=== PATIENT | male | born 1945 | race Caucasian/White ===

== ENCOUNTER → 2020-07-05 09:22 | Outpatient (BNVA) | payer MEDICARE, SELFPAY | PROVIDERS: PCP Internal Medicine; Visit Provider Urology | DX: Z13.89 Encounter for screening for other disorder (principal) | CPT/HCPCS: 99212 ==

== ENCOUNTER → 2021-07-09 08:32 | Outpatient (BNVA) | payer MEDICARE, SELFPAY | PROVIDERS: PCP Internal Medicine; Visit Provider Urology | DX: N40.1 Benign prostatic hyperplasia with lower urinary tract symptoms (principal); R39.12 Poor urinary stream | CPT/HCPCS: Q3014 ==

== ENCOUNTER → 2021-08-23 10:02 | Outpatient (BNVA) | payer MEDICARE, SELFPAY | PROVIDERS: PCP Internal Medicine; Visit Provider Urology | DX: N40.0 Benign prostatic hyperplasia without lower urinary tract symptoms (principal) | CPT/HCPCS: Q3014 ==

== ENCOUNTER 2021-09-02 07:10 | Day surgery (SDC) | payer MEDICARE, SELFPAY ==
--- NOTE | 2021-08-30 09:36 | HO.ANESPROP2 ---
Documented by User: Lisa Garcia NP 08/30/21 09:39 HPI - Anesthesia Eval Consult details Narrative: 76yo M for Laser Ablation Prostate w/Green Light PMFSH Active Problems Active Problems: All Active Problems (Updated 07/05/20 @ 09:59 by Napoleon Dao MD) Benign prostatic hyperplasia with lower urinary tract symptoms (Acute) Past Medical History Medical History (Updated 08/30/21 @ 09:38 by Lisa Garcia NP) Benign prostatic hyperplasia with lower urinary tract symptoms Hematuria HLD (hyperlipidemia) Hypothyroid Surgical History Surgical History History of hernia repair Social History Social History Patient Tobacco Use Status: Never used Tobacco Meds Allergies Allergy/AdvReac Type Severity Reaction Status Date / Time No Known Allergies Allergy Verified 08/23/21 10:03 Home Medications Medication Instructions Recorded Confirmed Last Taken Type atorvastatin 40 mg tablet mg PO 07/05/20 Unknown History finasteride 5 mg tablet 5 mg PO DAILY 07/05/20 Unknown History levothyroxine 75 mcg tablet 75 mcg PO DAILY 07/05/20 Unknown History Exam Exam Date and Time: August 30, 2021 0936 Assessment and Plan Assessment Anesthesia Assessment: Chart Reviewed Documented by User: Derek Sanabria MD 09/02/21 14:42 PMF Past Medical History Medical History (Updated 08/30/21 @ 09:38 by Lisa Garcia NP) Benign prostatic hyperplasia with lower urinary tract symptoms Hematuria HLD (hyperlipidemia) Hypothyroid Family History Family history of problems with anesthesia: No Surgical History Surgical History History of hernia repair History of Problems with Anesthesia: No Social History Social History Patient Tobacco Use Status: Never used Tobacco Meds Allergies Allergy/AdvReac Type Severity Reaction Status Date / Time No Known Allergies Allergy Verified 08/23/21 10:03 Home Medications Medication Instructions Recorded Confirmed Last Taken Type atorvastatin 40 mg tablet mg PO 07/05/20 Unknown History finasteride 5 mg tablet 5 mg PO DAILY 07/05/20 Unknown History levothyroxine 75 mcg tablet 75 mcg PO DAILY 07/05/20 Unknown History Exam Airway Mallampati Class: III TM Dist: >3cm Neck ROM: Full Loose/Missing/Broken Teeth: Yes (Poor dentition , chipped , crowns . ) Heart: S1, S2 Lungs: b/l breath sounds Assessment and Plan Assessment Anesthesia Assessment: Anesthesia Plan Discussed Final Anesthetic Review Family History of Problems with Anesthesia: No History of Problems with Anesthesia: No NPO: Yes ASA Class: II Final Preanesthetic Review: Meds/Allgs Chart Reviewed, Consent Obtained/Reviewed and Anes Risks/Benef Reviewed Patient Risk: Intermediate Procedure Risk: Intermediate Anesthetic Plan Anesthetic Plan: GA Disposition: Standard PACU
[2021-09-02 07:20] VITALS: BP 156/78; PULSE 61; RESP 18; TEMP 36.6; O2SAT 97; BMI 21.5
--- NOTE | 2021-09-02 07:38 | MHC.SHP ---
Pre-Procedural Eval Section A Date of Service: 09/02/21 The patient is an INPATIENT: No Changes since office visit: No Cold of Flu in the past 2 weeks, No New Medical Problems, No Changes in Medication and No Patient answered all questions The History & Physical has been completed within 30 days and I have reviewed it.: No Section B Chief Complaint: Benign prostatic hyperplasia with lower urinary Relevant Family History (Specify if Yes): No Relevant Social History: None Present Medications: see Short Stay Collaborative assessment Medical History: No relevant PMH History of Previous Operations: Relevant previous surgery/procedure and date(s) Allergies: Allergies Allergy/AdvReac Type Severity Reaction Status Date / Time No Known Allergies Allergy Verified 08/23/21 10:03 Review of Systems Sugical H&P ROS: Negative: Constitution, Cardiovascular, Respiratory, Neurological, Psychiatric, Hem-Onc, Allergic/Immunologic, Gastrointestinal, Genitourinary, Musculoskeletal, Integumentary, Endocrine and Eyes/Ears/Nose/Throat Exam Surgical H&P Exam: Normal: HEENT, Normal: Heart, Normal: Lungs, Normal: Extremities, Normal: Abdomen, Normal: Skin and Normal: Neurological Plan Diagnosis/Plan: Unchanged I have reviewed the history and physical and performed a pertinent physical examination on my patient. No changes have occurred unless specified.
[2021-09-02] MEDS: Lactated Ringers 1,000 ML 100 ML IVCONT (07:48)
--- NOTE | 2021-09-02 09:52 | W.PM.OPN ---
Operative Note Operative Note Date of Service: 09/02/21 Narrative: PreOperative Diagnosis: Bladder outlet obstruction Post Operative Diagnosis: Bladder outlet obstruction and superficial mucosal changes on back wall of bladder Procedure: GreenLight Laser Enucleation of the prostate, bladder biopsy with fulguration Surgeon: Dr Napoleon Dao Anesthesia: General Indications for procedure: [] History of bladder outlet obstruction. Treated with alpha-luis and other medications. Still with symptoms.Recommendation for prostate procedure with laser enucleation of prostate. It has been discussed. Focus was placed on development of retrograde examination which is a normal part of this procedure. Procedure: After informed consent was verified the patient was brought to the operating room and placed in a supine position. Anesthesia was administered per protocol. Patient was placed in modified dorsal lithotomy position and prepped and draped in a sterile fashion. Safety pause time-out was confirmed. Antibiotics have been given. Twenty-four Bahraini laser cystoscope was inserted per urethra. No abnormalities found in the anterior or posterior urethra. The bladder was entered and both ureteric orifices were seen in normal position away from our area of interest. The bladder had significant trabeculation with small diverticulum throughout the posterior wall of the bladder. There were mucosal changes on the back wall. These were suspicious for CIS. Biopsies were taken. All areas of suspicious mucosal change were fulgurated using the GreenLight laser on hemostatics settings. Using a GreenLight laser settings of 80 w incisions were made at the 5 and 7 o'clock position. They were taken down and then laterally on each side. They were brought from the bladder neck down to the level of the veru. These defined the lateral aspects of the median lobe area. The median lobe was ablated and enucleated tissue removed. This had primarily released the obstructing tissue within the prostate. The prostate was smaller than typical. And the lateral grooves were further developed. Decision was made that bilateral lobe enucleation was unwarranted in this particular case. A 22 [place]raini 30 cc balloon Amado catheter was placed over stylet into the bladder. Clear efflux was obtained. 30 cc was placed in the balloon and gentle traction was placed. A snap was used to hold tension once the patient will be moved and transported. Once transportation its finish this novel be removed. A belladonna and opiate suppository was placed for postprocedure pain management. He tolerated procedure well was extubated in the operating and transferred in a stable condition to the recovery area. Total Power Thirty kW Pathology: Prostate tissue and bladder biopsy Drains: Amado catheter
[2021-09-02 09:55] VITALS: BP 128/60; PULSE 65; RESP 14; TEMP 36.1; O2SAT 100
[2021-09-02 10:00] VITALS: BP 137/62; PULSE 70; RESP 16; O2SAT 97
[2021-09-02 10:05] VITALS: BP 133/66; PULSE 70; RESP 16; O2SAT 97
[2021-09-02 10:10] VITALS: BP 140/67; PULSE 68; RESP 18; TEMP 36.5; O2SAT 98
[2021-09-02] MEDS: Acetaminophen 325 MG TABLET 650 MG PO (10:11)
== END 2021-09-02 11:50 | disposition home or self-care (01) ==
PROVIDERS: PCP Internal Medicine; Visit Provider Urology
PROC: (CPT 52648; principal; 2021-09-02 09:10)
DX: N40.1 Benign prostatic hyperplasia with lower urinary tract symptoms (principal); N32.0 Bladder-neck obstruction; R39.12 Poor urinary stream; R33.8 Other retention of urine; R31.9 Hematuria, unspecified; N32.89 Other specified disorders of bladder; N32.3 Diverticulum of bladder; E03.9 Hypothyroidism, unspecified; E78.5 Hyperlipidemia, unspecified; Z79.899 Other long term (current) drug therapy
CPT/HCPCS: 52648; 52204; 88305; J1100; J1956; J2405; J3010

== ENCOUNTER → 2021-09-05 09:13 | Outpatient (BNVA) | payer MEDICARE, SELFPAY | PROVIDERS: PCP Internal Medicine; Visit Provider Urology | DX: N40.0 Benign prostatic hyperplasia without lower urinary tract symptoms (principal) | CPT/HCPCS: 51700; 51798 ==

== ENCOUNTER → 2021-10-24 08:49 | Outpatient (BNVA) | payer MEDICARE, SELFPAY | PROVIDERS: PCP Internal Medicine; Visit Provider Urology | DX: N40.1 Benign prostatic hyperplasia with lower urinary tract symptoms (principal); R35.1 Nocturia | CPT/HCPCS: 99212 ==

== ENCOUNTER 2022-04-22 11:25 | Outpatient (REF) | payer MEDICARE, SELFPAY ==
[2022-04-22 14:30] LABS: Prostate Specific Antigen 3.38 ng/mL (<0.05-4.0)
== END 2022-04-22 11:26 | disposition home or self-care (01) ==
LOC: HO.10HDL 11:25
PROVIDERS: Visit Provider Urology
DX: Z12.5 Encounter for screening for malignant neoplasm of prostate (principal); N40.1 Benign prostatic hyperplasia with lower urinary tract symptoms
CPT/HCPCS: 36415; 84153

== ENCOUNTER 2022-05-01 08:36 | Outpatient (REF) | payer MEDICARE, SELFPAY ==
[2022-05-01 17:12] LABS: Urine Cytology See Pathology rpt
== END 2022-05-01 08:37 | disposition home or self-care (01) ==
LOC: HO.LAB 08:36
PROVIDERS: PCP Internal Medicine; Visit Provider Urology
DX: R31.29 Other microscopic hematuria (principal); N40.1 Benign prostatic hyperplasia with lower urinary tract symptoms; R97.20 Elevated prostate specific antigen [PSA]
CPT/HCPCS: 51798; 88112; 99212

== ENCOUNTER 2022-10-14 09:00 | Outpatient (REF) | payer MEDICARE, SELFPAY ==
[2022-10-14 11:21] LABS: Prostate Specific Antigen 4.66 ng/mL (<0.05-4.0)
== END 2022-10-14 09:01 | disposition home or self-care (01) ==
LOC: HO.10HDL 09:00
PROVIDERS: Visit Provider Urology
DX: Z12.5 Encounter for screening for malignant neoplasm of prostate (principal); N40.1 Benign prostatic hyperplasia with lower urinary tract symptoms
CPT/HCPCS: 36415; 84153

== ENCOUNTER 2022-10-29 08:38 | Outpatient (AMB) | payer MEDICARE, SELFPAY ==
--- NOTE | 2022-10-29 08:38 | A.OFFVIS_ITS ---
Intake Intake Visit Reasons: PSA Follow Up (SET) Dentofacial Orthopedics Dentist Required: No Allergies No Known Allergies Allergy (Verified 10/29/22 08:38) HPI HPI Comments History of Present Illness Details Mr Romeo is a very pleasant male. He is a patient of Dr Lundy. He is seen today for the following urologic conditions. - gross hematuria - negative evaluation 2017 - BPH Telemedicine Evaluation 15 min Consultation D[employer] [place] Video attempted PSA recovering after off finasteride Review in 6 months to ensure stability Lower Urinary Tract Symptoms: Has some mild weakness of stream Current visit is for further evaluation of, lower urinary tract symptoms. Current treatment includes 5-AR - many years. Prostate Symptom Score 06/06 Moderate (9-19), Bother 2 07/05 , Mild (0-8), Bother 2 Symptoms include / , incomplete emptying, weak stream, and are stable. Results from testing include Cystoscopy Enlarged median lobe 05/06 cytology negative PSA 2016 0.7, 07/09 2.4, 07/10 3.2, 10/10 4.6 GreenLight laser prostatectomy 08/09 [facility] Medical History Benign prostatic hyperplasia with lower urinary tract symptoms Hematuria HLD (hyperlipidemia) Hypothyroid Surgical History History of hernia repair Social History Patient Tobacco Use Status: Never used Tobacco Review of Systems Const All systems reviewed & are unremarkable except as noted in HPI and below Reports no additional complaints Resp Reports no additional complaints GI Reports no additional complaints Reports as per HPI Musc Reports no additional complaints Physical Exam Telemedicine evaluation Appropriate responses Regular breathing rate and rhythm HEENT Head: Yes normal to inspection Ears: hearing grossly normal bilaterally Eyes General: appearance normal, both eyes and all related structures Neck Neck: Yes normal visual inspection Chest Chest palpation & inspection: normal inspection of the chest Resp Effort & Inspection: normal respiratory effort and able to speak in complete sentences Assessment & Plan Assessment & Plan (1) Rising PSA level: Code(s): R97.20 - Elevated prostate specific antigen [PSA] Plan Six month follow-up PSA Orders: Orders PSA,Total (Free>4and<10) 6 Months R97.20 - Elevated prostate specific antigen [PSA] Patient Instructions: Imaging studies, laboratory and physical exam results were discussed and reviewed in detail. No major barriers to patient understanding were identified. An opportunity to ask questions regarding the treatment plan was provided. All questions were answered. The patient expressed understanding and agreement with the above treatment plan. The patient is aware they should contact our office by phone for worsening of their current condition or the appearance of new urologic symptoms. Compliance is encouraged with any medications and followup testing that is ordered. It is a privilege to participate in the urologic care of your patient. If you have any questions or concerns regarding treatment for the above conditions, or other urologic issues, please do not hesitate to contact me. The office telephone contact is [phone]. This note is constructed using voice recognition software. While every effort has been made to ensure accuracy mercury recoverer errors may have been included. Yours sincerely, Dr Napoleon Dao MD, JAJA [facility] - Urology Providers of Expert, Compassionate Care for the Genitourinary System Telehealth Telehealth Location of provider rendering services: practice address Location of patient: address on file Patient Identification confirmed using: Name, : Yes Telehealth method: video Patient verbally consented to treatment: Yes Patient verbally consented to billing insurance company: Yes Patient informed of any privacy concerns related to visit: Yes Coding Level of Care Code Tele Est Pt Level 3 (59679) Diagnoses Rising PSA level R97.20
== END 2022-10-29 11:13 | disposition home or self-care (01) ==
LOC: HO.HUSH 08:38
PROVIDERS: PCP Internal Medicine; Visit Provider Urology
DX: R97.20 Elevated prostate specific antigen [PSA] (principal)
CPT/HCPCS: 99213

== ENCOUNTER → 2022-10-29 08:38 | Outpatient (BNVA) | payer MEDICARE, SELFPAY | PROVIDERS: PCP Internal Medicine; Visit Provider Urology | DX: R97.20 Elevated prostate specific antigen [PSA] (principal) | CPT/HCPCS: Q3014 ==

== ENCOUNTER 2023-04-15 09:27 | Outpatient (REF) | payer MEDICARE, SELFPAY ==
[2023-04-15 11:16] LABS: PSA,Total (Free>4and<10) 3.88 ng/mL (0.00-4.00)
== END 2023-04-15 09:28 | disposition home or self-care (01) ==
LOC: HO.10HDL 09:27
PROVIDERS: Visit Provider Urology
DX: R97.20 Elevated prostate specific antigen [PSA] (principal); Z12.5 Encounter for screening for malignant neoplasm of prostate
CPT/HCPCS: 36415; 84153

== ENCOUNTER 2023-04-29 08:18 | Outpatient (AMB) | payer MEDICARE, SELFPAY ==
--- NOTE | 2023-04-29 08:27 | A.OFFVIS_ITS ---
Intake Intake Visit Reasons: 6m/PSA(set) Intake Note: Patient is Present for Follow Up PSA Urology Medication: None Antibiotic Allergies: None Blood Thinners: None PVR: 0 Patient states that he is no longer on Finasteride States Provider had discontinued Allergies No Known Allergies Allergy (Verified 10/29/22 08:38) HPI HPI Comments History of Present Illness Details Mr Romeo is a very pleasant male. He is a patient of Dr Lundy. He is seen today for the following urologic conditions. - gross hematuria - negative evaluation 2017 - BPH PSA 04/11 3.8 Continue to follow Q 6 month PSA fall mild elevation Significantly improved voiding following procedure with PVR 0 cc Lower Urinary Tract Symptoms: Has some mild weakness of stream Current visit is for further evaluation of, lower urinary tract symptoms. Current treatment includes 5-AR - many years. Prostate Symptom Score 06/06 Moderate (9-19), Bother 2 07/05 , Mild (0-8), Bother 2 Symptoms include / , incomplete emptying, weak stream, and are stable. Results from testing include Cystoscopy Enlarged median lobe 05/06 cytology negative PSA 2016 0.7, 07/09 2.4, 07/10 3.2, 10/10 4.6, 04/11 3.8 GreenLight laser prostatectomy 08/09 [facility] [place] Medical History Benign prostatic hyperplasia with lower urinary tract symptoms Hematuria HLD (hyperlipidemia) Hypothyroid Surgical History History of hernia repair Social History Patient Tobacco Use Status: Never used Tobacco Review of Systems Const Denies chills and Denies fever(s) Card Reports no additional complaints and Denies syncope Resp Denies cough GI Denies abdominal pain and Denies heartburn Reports as per HPI and Denies change in libido Neuro Denies syncope Psych Denies change in libido Endo Denies change in libido Physical Exam Const General: cooperative, healthy appearing, comfortable and no acute distress Orientation/consciousness: patient oriented x3 HEENT Face and sinus: Yes normal facial exam Mouth: moist mucous membranes Neck Neck: Yes normal visual inspection, Yes full ROM and Yes trachea midline Chest Chest palpation & inspection: normal inspection of the chest Resp Effort & Inspection: normal respiratory effort, able to speak in complete sentences and no respiratory distress GI Inspection: Yes normal to inspection Back/Spine/Pelvis Cervical Spine: normal cervical lordosis Thoracic/Lumbar Spine: thoracic and lumbar spine normal to inspection Skin General skin exam: no rashes or lesions noted Neuro General: patient oriented x3, gait normal, tone normal and moves all extremities Extrem General: Yes normal to inspection and Yes capillary refill normal Office Procedures Post Void Residual Post Residual Void Post Void Residual (PVR): 0 [id number]-Vkpf Void Residual by ultrasound Assessment & Plan Assessment & Plan (1) Benign prostatic hyperplasia with lower urinary tract symptoms: Code(s): N40.1 - Benign prostatic hyperplasia with lower urinary tract symptoms (2) Nocturia associated with benign prostatic hyperplasia: Code(s): N40.1 - Benign prostatic hyperplasia with lower urinary tract symptoms; R35.1 - Nocturia Plan 6 month follow-up PSA Orders: Orders AMB Post Void Residual by ultrasound Today N40.1 - Benign prostatic hyperplasia with lower urinary tract symptoms Prostate Specific Antigen 6 Months R97.20 - Elevated prostate specific antigen [PSA] Patient Instructions: Imaging studies, laboratory and physical exam results were discussed and reviewed in detail. No major barriers to patient understanding were identified. An opportunity to ask questions regarding the treatment plan was provided. All questions were answered. The patient expressed understanding and agreement with the above treatment plan. The patient is aware they should contact our office by phone for worsening of their current condition or the appearance of new urologic symptoms. Compliance is encouraged with any medications and followup testing that is ordered. It is a privilege to participate in the urologic care of your patient. If you have any questions or concerns regarding treatment for the above conditions, or other urologic issues, please do not hesitate to contact me. The office telepho ne contact is [phone]. This note is constructed using voice recognition software. While every effort has been made to ensure accuracy chief optometry service errors may have been included. Yours sincerely, Dr Napoleon Dao MD, JA[facility] - Urology Providers of Expert, Compassionate Care for the Genitourinary System Coding Level of Care Code Est Pt Level 3 (78402) Diagnoses Benign prostatic hyperplasia with lower urinary tract symptoms N40.1 Nocturia associated with benign prostatic hyperplasia N40.1; R35.1 CPT Codes Post Residual Void - PVR CPT Code: 07924-Hime Void Residual by ultrasound ([id number])
== END 2023-04-29 08:58 | disposition home or self-care (01) ==
PROVIDERS: PCP Internal Medicine; Visit Provider Urology
DX: N40.1 Benign prostatic hyperplasia with lower urinary tract symptoms (principal); R35.1 Nocturia
CPT/HCPCS: 99213

== ENCOUNTER → 2023-04-29 08:18 | Outpatient (BNVA) | payer MEDICARE, SELFPAY | PROVIDERS: PCP Internal Medicine; Visit Provider Urology | DX: N40.1 Benign prostatic hyperplasia with lower urinary tract symptoms (principal); R35.1 Nocturia | CPT/HCPCS: 51798; 99212 ==

== ENCOUNTER 2023-10-21 08:23 | Outpatient (AMB) | payer MEDICARE, SELFPAY ==
--- NOTE | 2023-10-21 08:27 | A.OFFVIS_ITS ---
Intake Visit Reasons: 6m/PSA(SET) Intake Note: Patient is Present for Telephone Follow Up PSA Urology Med: No longer on Finasteride Antibiotic Allergy: None Blood Thinner:None Teacher Emotionally Impaired Required: No Allergies No Known Allergies Allergy (Verified 10/21/23 08:28) HPI Comments Details: Mr Romeo is a very pleasant male. He is a patient of Dr Lundy. He is seen today for the following urologic conditions. - gross hematuria - negative evaluation 2017 - lower urinary tract symptoms Telemedicine Evaluation 15 min Consultation [employer] Emre Video attempted PSA 04/11 3.8, 10/11 3.3 Continue to follow Q 6 month PSA fall mild elevation Significantly improved voiding following procedure with PVR 0 cc Lower Urinary Tract Symptoms: Has some mild weakness of stream Current visit is for further evaluation of, lower urinary tract symptoms. Current treatment includes 5-AR - many years. Prostate Symptom Score 06/06 Moderate (9-19), Bother 2 07/05 , Mild (0-8), Bother 2 Symptoms include / , incomplete emptying, weak stream, and are stable. Results from testing include Cystoscopy Enlarged median lobe 05/06 cytology negative PSA 2016 0.7, 07/09 2.4, 07/10 3.2, 10/10 4.6, 04/11 3.8 GreenLight laser prostatectomy 08/09 [facility] Medical History HLD (hyperlipidemia) Hypothyroid Benign prostatic hyperplasia with lower urinary tract symptoms Hematuria Surgical History History of hernia repair Social History Patient Tobacco Use Status: Never used Tobacco Review of Systems Const All systems reviewed & are unremarkable except as noted in HPI and below Reports no additional complaints Resp Reports no additional complaints GI Reports no additional complaints Reports as per HPI Musc Reports no additional complaints Physical Exam Telemedicine evaluation Appropriate responses Regular breathing rate and rhythm HEENT Head: Yes normal to inspection Ears: hearing grossly normal bilaterally Eyes General: appearance normal, both eyes and all related structures Neck Neck: Yes normal visual inspection Chest Chest palpation & inspection: normal inspection of the chest Resp Effort & Inspection: normal respiratory effort and able to speak in complete sentences Telehealth Telehealth Telehealth Platform: D[employer]im[employer] Location of provider rendering services: practice address Location of patient: address on file Patient Identification confirmed using: Name, : Yes Telehealth method: video Patient verbally consented to treatment: Yes Patient verbally consented to billing insurance company: Yes Patient informed of any privacy concerns related to visit: Yes Minutes spent on Phone/Video with Pt.: 15 Assessment & Plan Assessment & Plan (1) Nocturia associated with benign prostatic hyperplasia: Code(s): N40.1 - Benign prostatic hyperplasia with lower urinary tract symptoms; R35.1 - Nocturia Category: Medical (2) Benign prostatic hyperplasia with lower urinary tract symptoms: Code(s): N40.1 - Benign prostatic hyperplasia with lower urinary tract symptoms Category: Medical (3) Rising PSA level: Code(s): R97.20 - Elevated prostate specific antigen [PSA] Category: Medical Plan Six-month follow-up PSA office Orders: Orders Prostate Specific Antigen 6 Months R97.20 - Elevated prostate specific antigen [PSA] Patient Instructions: Imaging studies, laboratory and physical exam results were discussed and reviewed in detail. No major barriers to patient understanding were identified. An opportunity to ask questions regarding the treatment plan was provided. All questions were answered. The patient expressed understanding and agreement with the above treatment plan. The patient is aware they should contact our office by phone for worsening of th eir current condition or the appearance of new urologic symptoms. Compliance is encouraged with any medications and followup testing that is ordered. It is a privilege to participate in the urologic care of your patient. If you have any questions or concerns regarding treatment for the above conditions, or other urologic issues, please do not hesitate to contact me. The office telephone contact is [phone]. This note is constructed using voice recognition software. While every effort has been made to ensure accuracy real estate specialist errors may have been included. Yours sincerely, Dr Napoleon Dao MD, JA[facility] - Urology Providers of Expert, Compassionate Care for the Genitourinary System Coding Level of Care Code Tele Est Pt Level 3 (45533) Diagnoses Nocturia associated with benign prostatic hyperplasia N40.1; R35.1 Benign prostatic hyperplasia with lower urinary tract symptoms N40.1 Rising PSA level R97.20
== END 2023-10-21 09:19 | disposition home or self-care (01) ==
LOC: HO.HUSH 08:23
PROVIDERS: PCP Internal Medicine; Visit Provider Urology
DX: N40.1 Benign prostatic hyperplasia with lower urinary tract symptoms (principal); R35.1 Nocturia; R97.20 Elevated prostate specific antigen [PSA]
CPT/HCPCS: 99213

== ENCOUNTER → 2023-10-21 08:23 | Outpatient (BNVA) | payer MEDICARE, SELFPAY | PROVIDERS: PCP Internal Medicine; Visit Provider Urology ==

== ENCOUNTER 2024-04-27 08:17 | Outpatient (AMB) | payer MEDICARE, SELFPAY ==
--- NOTE | 2024-04-27 08:22 | A.OFFVIS_ITS ---
Intake Visit Reasons: 6M PSA(set) Intake Note: Patient is present for 6M/PSA Urology Medication:NONE Antibiotic Allergy:NONE Blood Thinner:NONE Loader Hel[employer] S[employer] Required: No Allergies No Known Allergies Allergy (Verified 04/27/24 08:23) HPI Comments Details: Mr Romeo is a very pleasant male. He is a patient of Dr Lundy. He is seen today for the following urologic conditions. - gross hematuria - negative evaluation 2017 - lower urinary tract symptoms - rising PSA Six-month follow-up PSA continuing to rise over past 6 months despite finasteride PSA has gone from 3.3-4.1 FABIANA shows right base nodule Recommend prostate MRI for potential targeted biopsy PSA 04/11 3.8, 10/11 3.3, 05/14 4.1 PSA variation Significantly improved voiding following procedure with PVR 0 cc Lower Urinary Tract Symptoms: Has some mild weakness of stream Current visit is for further evaluation of, lower urinary tract symptoms. Current treatment includes 5-AR - many years. Prostate Symptom Score 06/06 Moderate (9-19), Bother 2 07/05 , Mild (0-8), Bother 2 Symptoms include / , incomplete emptying, weak stream, and are stable. Results from testing include Cystoscopy Enlarged median lobe 05/06 cytology negative PSA 2017 0.7, 07/09 2.4, 07/10 3.2, 10/10 4.6, 04/11 3.8 GreenLight laser prostatectomy 08/09 [facility] Medical History HLD (hyperlipidemia) Hypothyroid Benign prostatic hyperplasia with lower urinary tract symptoms Hematuria Surgical History History of hernia repair Social History Patient Tobacco Use Status: Never used Tobacco Review of Systems Const Denies chills and Denies fever(s) Card Reports no additional complaints and Denies syncope Resp Denies cough GI Denies abdominal pain and Denies heartburn Reports as per HPI and Denies change in libido Neuro Denies syncope Psych Denies change in libido Endo Denies change in libido Physical Exam Const General: cooperative, healthy appearing, comfortable and no acute distress Orientation/consciousness: patient oriented x3 HEENT Face and sinus: Yes normal facial exam Mouth: moist mucous membranes Neck Neck: Yes normal visual inspection, Yes full ROM and Yes trachea midline Chest Chest palpation & inspection: normal inspection of the chest Resp Effort & Inspection: normal respiratory effort, able to speak in complete sentences and no respiratory distress GI Inspection: Yes normal to inspection Rectal Exam - Male: Yes normal sphincter tone and Yes prostate normal Male General Exam: Yes normal external exam Penis: normal penis and circumcised Meatus: meatus normal Scrotum: scrotum normal Testes: Testes normal Back/Spine/Pelvis Cervical Spine: normal cervical lordosis Thoracic/Lumbar Spine: thoracic and lumbar spine normal to inspection Skin General skin exam: no rashes or lesions noted Neuro General: patient oriented x3, gait normal, tone normal and moves all extremities Extrem General: Yes normal to inspection and Yes capillary refill normal Results AMB Urinalysis, Automated UA Leukoctes 0 Luisito/uL Last Edit by GLORIA Ramirez on 04/27/24 08:34 UA Nitrite Negative Last Edit by GLORIA Ramirez on 04/27/24 08:34 UA Urobilinogen 0.2 mg/dL Last Edit by GLORIA Ramirez on 04/27/24 08:3 4 UA Protein 0 mg/dL Last Edit by GLORIA Ramirez on 04/27/24 08:34 UA pH 6.0 Last Edit by GLORIA Ramirez on 04/27/24 08:34 UA Blood 10 Oracio/uL Last Edit by GLORIA Ramirez on 04/27/24 08:34 UA Specific [place] 1.020 Last Edit by GLORIA Ramirez on 04/27/24 08: 34 UA Ketone Negative Last Edit by GLORIA Ramirez on 04/27/24 08:34 UA Bilirubin 0 mg/dL Last Edit by GLORIA Ramirez on 04/27/24 08:34 UA Glucose 0 mg/dL Last Edit by GLORIA Ramirez on 04/27/24 08:34 Results Reviewed Results Reviewed: Laboratory Last Values Urine pH (Auto) 6.0 04/27/24 08:33 Specific [place] (Auto) 1.020 04/27/24 08:33 Urine Protein (Auto) 0 mg/dL 04/27/24 08:33 Glucose (UA)(Auto) 0 mg/dL 04/27/24 08:33 Urine Ketones (Auto) Negative 04/27/24 08:33 Urine Blood (Auto) 10 Oracio/uL 04/27/24 08:33 Urine Nitrite (Auto) Negative 04/27/24 08:33 Urine Bilirubin (Auto) 0 mg/dL 04/27/24 08:33 Urine Urobilinogen (Auto) 0.2 mg/dL 04/27/24 08:33 Leukocyte Esterase (Auto) 0 Luisito/uL 04/27/24 08:33 Assessment & Plan Assessment & Plan (1) Benign prostatic hyperplasia with lower urinary tract symptoms: Code(s): N40.1 - Benign prostatic hyperplasia with lower urinary tract symptoms Category: Medical (2) Rising PSA level: Code(s): R97.20 - Elevated prostate specific antigen [PSA] Category: Medical Plan Prostate MRI Orders: Orders AMB Urinalysis Automated Today Z13.9 - Encounter for screening, unspecified MR Prostate wo/w con Today R97.20 - Elevated prostate specific antigen [PSA] Patient Instructions: Imaging studies, laboratory and physical exam results were discussed and reviewed in detail. No major barriers to patient understanding were identified. An opportunity to ask questions regarding the treatment plan was provided. All questions were answered. The patient expressed understanding and agreement with the above treatment plan. The patient is aware they should contact our office by phone for worsening of their current condition or the appearance of new urologic symptoms. Compliance is encouraged with any medications and followup testing that is ordered. It is a privilege to participate in the urologic care of your patient. If you have any questions or concerns regarding treatment for the above conditions, or other urologic issues, please do not hesitate to contact me. The office telephone contact is [phone]. This note is constructed using voice recognition software. While every effort has been made to ensure accuracy mineral economist errors may have been included. Yours sincerely, Dr Napoleon Dao MD, [facility] - Urology Providers of Expert, Compassionate Care for the Genitourinary System Coding Level of Care Code Est Pt Level 3 (76789) Diagnoses Benign prostatic hyperplasia with lower urinary tract symptoms N40.1 Rising PSA level R97.20
== END 2024-04-27 08:55 | disposition home or self-care (01) ==
PROVIDERS: PCP Internal Medicine; Visit Provider Urology
DX: N40.1 Benign prostatic hyperplasia with lower urinary tract symptoms (principal); R97.20 Elevated prostate specific antigen [PSA]; Z13.9 Encounter for screening, unspecified
CPT/HCPCS: 99213

== ENCOUNTER → 2024-04-27 08:17 | Outpatient (BNVA) | payer MEDICARE, SELFPAY | PROVIDERS: PCP Internal Medicine; Visit Provider Urology | DX: N40.1 Benign prostatic hyperplasia with lower urinary tract symptoms (principal); R97.20 Elevated prostate specific antigen [PSA] | CPT/HCPCS: 81003; 99212 ==

== ENCOUNTER → 2024-05-23 08:10 | Outpatient (BNV) | payer MEDICARE, SELFPAY | PROVIDERS: PCP Internal Medicine; Visit Provider Radiology Diagnostic Radiology | DX: R97.20 Elevated prostate specific antigen [PSA] (principal) | CPT/HCPCS: 72197 ==

== ENCOUNTER 2024-05-23 08:15 | Outpatient (REF) | payer MEDICARE, SELFPAY ==
--- NOTE | ~2024-05-23 | MR_ITS ---
EXAMINATION: MR PROSTATE WITHOUT THEN WITH IV CONTRAST HISTORY: R97.20 - Elevated prostate specific antigen [PSA] TECHNIQUE: 1.5T body coil survey of the pelvis was performed. Phase array coil imaging of the prostate was performed in multiplanar high resolution axial, coronal, sagittal fast spin echo T2 and axial T1 weighted imaging sequences. Axial diffusion imaging at intermediate and high field performed with ADC mapping. Next, 7 mL Gadavist was given by intravenous infusion, and dynamic axial imaging performed. COMPARISON: There are no prior studies for comparison. CLINICAL DATA: Most recent PSA: 4.1 ng/mL on 03/02/2024 PSA Density: 0.15 ng/mL squared Prostate Biopsy: None reported FINDINGS: Prostate size: 3.2 x 5.0 x 3.3 cm. Calculated prostate volume is 27.5 mL. Hemorrhage: None. Transitional Zone: There is moderate heterogeneous nodular hypertrophy of the transitional zone. Peripheral Zone: Diffusion-weighted images are somewhat limited by artifact from gas within the rectum. There is an area of interest in the right posterolateral peripheral zone at the apex (series 7, images 18-19) measuring 1.2 x 0.5 cm, with imaging characteristics is as follows: Lesion #1: DWI PI-RADS v2.1 score: 4 T2 PI-RADS v2.1 score: 4 DCE PI-RADS v2.1 score: + Overall PI-RADS v2.1 score: 4 Capsular contact: yes Extracapsular extension: No definite Seminal vesicle invasion: None Neurovascular bundle involvement: None Seminal Vesicles/Ejaculatory Ducts: Symmetric and normal in signal and caliber. Pelvic Lymph Nodes: No obturator or internal iliac lymph nodes meeting size criteria for adenopathy. Marrow Signal: Normal marrow signal and enhancement without focal lesion identified. MR/MR Prostate wo/w con IMPRESSION: Focus of abnormal signal intensity in the right posterolateral peripheral zone at the apex as described, suspicious for clinically significant prostate carcinoma. PI-RADS 4: High (clinically significant cancer is likely to be present) PI-RADS Assessment Categories PI-RADS 1: Very low (clinically significant cancer is highly unlikely to be present) PI-RADS 2: Low (clinically significant cancer is unlikely to be present) PI-RADS 3: Intermediate (the presence of clinically significant cancer is equivocal) PI-RADS 4: High (clinically significant cancer is likely to be present) PI-RADS 5: Very high (clinically significant cancer is highly likely to be present) [employer]. MR Prostate Imaging Reporting and Data System version 2.1. [email or web address] Electronically signed by: Elier Giles MD 05/23/2024 10:27 AM [facility]
[2024-05-23] MEDS: gadobutroL 7.5 ML VIAL IVPUSH (09:07)
== END 2024-05-23 08:16 | disposition home or self-care (01) ==
LOC: HO.MRI 08:15
PROVIDERS: PCP Internal Medicine; Visit Provider Urology
DX: R97.20 Elevated prostate specific antigen [PSA] (principal)
CPT/HCPCS: 72197; A9585

== ENCOUNTER → 2024-05-25 08:43 | Outpatient (BNVA) | payer MEDICARE, SELFPAY | PROVIDERS: PCP Internal Medicine; Visit Provider Urology ==

== ENCOUNTER 2024-08-01 06:49 | Day surgery (SDC) | payer MEDICARE, SELFPAY ==
[2024-07-28 11:16] VITALS: BMI 21.7
[2024-08-01 06:58] VITALS: BP 141/70; PULSE 59; RESP 16; TEMP 36.7; O2SAT 99; BMI 21.7
[2024-08-01] MEDS: Lactated Ringers 1,000 ML 80 ML IVCONT (07:13)
[2024-08-01] MEDS: levoFLOXacin 500 MG TABLET PO (07:37)
--- NOTE | 2024-08-01 08:27 | P.HPSUR_ITS ---
Pre-Procedural Eval Section A - 24 Hr Update-Section A only Date of Service: 08/01/24 The patient is an INPATIENT: No Changes since office visit: No Cold of Flu in the past 2 weeks, No New Medical Problems, No Changes in Medication and No Patient answered all questions The patient has been examined within 24 hours of the surgical procedure. The History & Physical has been completed within 30 days and I have reviewed it.: No Section B - Complete if H&P > 30 days Chief Complaint: Elevated prostate specific antigen [PSA] Details of Present Illness: 12 mm x 5 mm lesion seen right posterolateral peripheral zone PI-RADS 4 Relevant Family History (Specify if Yes): No Relevant Social History: None Present Medications: see Short Stay Collaborative assessment Medical History: No relevant PMH History of Previous Operations: No relevant previous surgery Allergies: Allergies Allergy/AdvReac Type Severity Reaction Status Date / Time No Known Allergies Allergy Verified 08/01/24 07:08 Review of Systems Sugical H&P ROS: Negative: Constitution, Cardiovascular, Respiratory, Neurological, Psychiatric, Hem-Onc, Allergic/Immunologic, Gastrointestinal, Genitourinary, Musculoskeletal, Integumentary, Endocrine and Eyes/Ears/Nose/Throat Exam Surgical H&P Exam: Normal: HEENT, Normal: Heart, Normal: Lungs, Normal: Extrem ities, Normal: Abdomen, Normal: Skin and Normal: Neurological Plan Diagnosis/Plan: Unchanged I have reviewed the history and physical and performed a pertinent physical examination on my patient. No changes have occurred unless specified. Time Spent With Patient Time: Total time managing care of this patient today ____ minutes.
--- NOTE | 2024-08-01 08:31 | P.CONAN_ITS ---
HPI - Anesthesia Eval Consult details Narrative: for prostate biopsy [facility] Active Problems Active Problems: All Active Problems Rising PSA level (Acute) Nocturia associated with benign prostatic hyperplasia (Acute) Benign prostatic hyperplasia with lower urinary tract symptoms (Acute) Past Medical History Medical History (Updated 08/01/24 @ 06:43 by Gisel Yu RN) Osteoarthritis H/O abdominal ultrasound HLD (hyperlipidemia) Hypothyroid Benign prostatic hyperplasia with lower urinary tract symptoms Hematuria Family History Family history of problems with anesthesia: No Surgical History Surgical History H/O colonoscopy History of prostate surgery History of hernia repair History of Problems with Anesthesia: No Social History Social History Are you a primary career based intervention coordinator to a significant other at home: No Do you presently have visiting nurse or other home services: No Patient Tobacco Use Status: Former Tobacco user Tobacco use type: Cigarette Years Smoked: 4 Smoked in Last 30 Days: No Use of substances other than those prescribed or required for medical reasons: No Have you been hit, kicked, punched, or otherwise hurt by someone within the past year? If so, by whom?: No Are you DNR?: No Advance Directives: No Advance Directives Information Provided: No Advance Directives on File: No Poor oral hygiene: No Meds Allergies Allergy/AdvReac Type Severity Reaction Status Date / Time No Known Allergies Allergy Verified 08/01/24 07:08 Active Medications: Current Medications Lactated Ringer's (Lr) 1,000 mls @ 80 mls/hr IVCONT .[id number] [facility] Last Admin: 08/01/24 07:13 Dose: 80 mls/hr Home Medications ?Medication ?Instructions ?Recorded ?Confirmed ?Last Taken ?Type atorvastatin 40 mg tablet 40 mg PO DAILY 07/05/20 08/01/24 Unknown History levothyroxine 75 mcg tablet 75 mcg PO DAILY 07/05/20 08/01/24 Unknown History Exam Height,Weight and Vital Signs: Height 5 ft 10 in Weight 68.5 kg Last Vital Signs Temp 98.0 F 08/01/24 06:58 Pulse 59 08/01/24 06:58 Resp 16 08/01/24 06:58 BP 141/70 H 08/01/24 06:58 Pulse Ox 99 08/01/24 06:58 O2 Del Method Room Air 08/01/24 06:58 Assessment and Plan Final Anesthetic Review Family History of Problems with Anesthesia: No History of Problems with Anesthesia: No
--- NOTE | 2024-08-01 08:32 | P.CONAN_ITS ---
HPI - Anesthesia Eval Consult details Narrative: prostrate biopsy [facility] Active Problems Active Problems: All Active Problems Rising PSA level (Acute) Nocturia associated with benign prostatic hyperplasia (Acute) Benign prostatic hyperplasia with lower urinary tract symptoms (Acute) Past Medical History Medical History Osteoarthritis H/O abdominal ultrasound HLD (hyperlipidemia) Hypothyroid Benign prostatic hyperplasia with lower urinary tract symptoms Hematuria Family History Family history of problems with anesthesia: No Surgical History Surgical History H/O colonoscopy History of prostate surgery History of hernia repair History of Problems with Anesthesia: No Social History Social History Are you a primary regular senior care provider to a significant other at home: No Do you presently have visiting nurse or other home services: No Patient Tobacco Use Status: Former Tobacco user Tobacco use type: Cigarette Years Smoked: 4 Smoked in Last 30 Days: No Use of substances other than those prescribed or required for medical reasons: No Have you been hit, kicked, punched, or otherwise hurt by someone within the past year? If so, by whom?: No Are you DNR?: No Advance Directives: No Advance Directives Information Provided: No Advance Directives on File: No Poor oral hygiene: No Meds Allergies Allergy/AdvReac Type Severity Reaction Status Date / Time No Known Allergies Allergy Verified 08/01/24 07:08 Active Medications: Current Medications Lactated Ringer's (Lr) 1,000 mls @ 80 mls/hr IVCONT .[id number] [facility] Last Admin: 08/01/24 07:13 Dose: 80 mls/hr Home Medications ?Medication ?Instructions ?Recorded ?Confirmed ?Last Taken ?Type atorvastatin 40 mg tablet 40 mg PO DAILY 07/05/20 08/01/24 Unknown History levothyroxine 75 mcg tablet 75 mcg PO DAILY 07/05/20 08/01/24 Unknown History Exam Height,Weight and Vital Signs: Height 5 ft 10 in Weight 68.5 kg Last Vital Signs Temp 98.0 F 08/01/24 06:58 Pulse 59 08/01/24 06:58 Resp 16 08/01/24 06:58 BP 141/70 H 08/01/24 06:58 Pulse Ox 99 08/01/24 06:58 O2 Del Method Room Air 08/01/24 06:58 Airway Mallampati Class: II TM Dist: >3cm Neck ROM: Limited Heart: rrr Lungs: cta Assessment and Plan Assessment Anesthesia Assessment: Anesthesia Plan Discussed and Chart Reviewed Final Anesthetic Review Family History of Problems with Anesthesia: No History of Problems with Anesthesia: No NPO: Yes ASA Class: II Final Preanesthetic Review: No Changes in Pt Med Stat, Meds/Allgs Chart Reviewed, Consent Obtained/Reviewed and Anes Risks/Benef Reviewed Patient Risk: Low Procedure Risk: Low Anesthetic Plan Anesthetic Plan: GA Disposition: Standard PACU
--- NOTE | 2024-08-01 09:12 | W.PM.OPN ---
Operative Note Operative Note Date of Service: 08/01/24 Narrative: Preoperative diagnosis: Elevated PSA Postoperative diagnosis: Elevated PSA Procedure: 1. transrectal ultrasound-guided pudendal nerve block 2. MRI-US fusion image registration performed 3. transperineal ultrasound-guided prostate biopsy 14 core including targets Surgeon: Dr. Napoleon Dao Anesthetic: Sedation plus local Indications for procedure: Elevated PSA 4.66 Procedure: After informed consent was verified, the patient was brought into the procedure area. Patient identity confirmed. Perioperative antibiotics confirmed. Safety pause time out performed. Anesthesia performed per protocol. Scrotum taped out of operative area. Iodine prep used. Perineal injection of local anesthetic. Digital guided prostate pudendal nerve block performed with 10 cc of 1% lidocaine. 5cc each side. Combination 10cc iodine with 50cc gel was mixed and placed in the rectum. Ultrasound probe was placed per rectum. Ultrasound probe stabilized on a prostate stepper with attached grid. The Whistle software and hardware platform used for US image acquisition, US 3D model creation and MRI-US fusion image overlay. Ultrasound placement was made with external grid calibration for height and prostate diameter in both the transverse and longitudinal planes. Grid A-C covering right prostate and c-F covering left prostate. Numbers 1.0-2.5 covering posterior prostate and 2.5-4.0 covering anterior prostate. Once grid calibration was confirmed prostate ultrasound data acquisition was performed in the transverse fashion. The US images were registered to create model boundaries. A three dimensional ultrasound model was created using The Whistle software. The model was reviewed against acquired US images. The planned needle targeting, based on prior acquisition of MRI imaging, was overlaid on the ultrasound images and targets confirmed through ultrasound review. Adjustments were then made between real time and projected model targeting locations. Based on pre-planning evaluation 14 targets had been identified. These included 3 targets of the PI-RADS 3 right posterolateral identified lesion/s. He tolerated the procedure well. Was transferred to stable condition in the PACU. Printed instructions regarding antibiotic use and common side effects such as low-grade temperature, potential infection and bleeding were given Pathology: 14 core prostate biopsy CPT 95713 Modifier 22 for complexity of procedure execution (Perineal prostate biopsy) CPT code 17709: Transrectal ultrasound; this is a diagnostic test for evaluation of the prostate and surrounding structures, looking for abnormalities or suspicious areas worrisome for cancer CPT code 47389: Ultrasonic guidance for needle placement (eg, biopsy, aspiration, injection, localization device), imaging supervision and interpretation CPT 41856: 3D rendering with interpretation and reporting of computed tomography (CT), MRI, ultrasound, or other tomographic modality with image postprocessing under concurrent supervision; not requiring image postprocessing on an independent workstation
[2024-08-01 09:20] VITALS: BP 101/56; PULSE 60; RESP 16; TEMP 36.9; O2SAT 96
[2024-08-01 09:25] VITALS: BP 104/55; PULSE 56; RESP 16; O2SAT 98
[2024-08-01] MEDS: Acetaminophen 325 MG TABLET 650 MG PO (09:29)
[2024-08-01 09:30] VITALS: BP 104/60; PULSE 57; RESP 16; O2SAT 98
[2024-08-01 09:35] VITALS: BP 92/59; PULSE 56; RESP 16; O2SAT 98
[2024-08-01 09:50] VITALS: BP 133/66; PULSE 53; RESP 16; TEMP 36; O2SAT 100
== END 2024-08-01 10:25 | disposition home or self-care (01) ==
PROVIDERS: PCP Internal Medicine; Visit Provider Urology
PROC: (CPT 55700; principal; 2024-08-01 08:50)
DX: N40.1 Benign prostatic hyperplasia with lower urinary tract symptoms (principal); C61 Malignant neoplasm of prostate; R97.20 Elevated prostate specific antigen [PSA]; R39.12 Poor urinary stream; R35.1 Nocturia; R31.9 Hematuria, unspecified; E78.5 Hyperlipidemia, unspecified; E03.9 Hypothyroidism, unspecified; Z79.899 Other long term (current) drug therapy; Z98.890 Other specified postprocedural states
CPT/HCPCS: 55706; 88305; J2003; J2704; J3010

== ENCOUNTER → 2024-08-01 06:49 | Outpatient (BNV) | payer MEDICARE, SELFPAY | PROVIDERS: PCP Internal Medicine; Visit Provider Urology | DX: R97.20 Elevated prostate specific antigen [PSA] (principal) | CPT/HCPCS: 55706; 76872; 76942 ==

== ENCOUNTER 2024-08-19 08:40 | Outpatient (AMB) | payer MEDICARE, SELFPAY ==
--- NOTE | 2024-08-19 08:40 | A.OFFVIS_ITS ---
Intake Visit Reasons: Targeted prostate biopsy results Intake Note: Patient is present via telehealth for targeted prostate biopsy results Urology Medication:NONE Antibiotic Allergy:NONE Blood Thinner:NONE Coverstitch Machine Operator Required: No Allergies No Known Allergies Allergy (Verified 08/19/24 08:41) HPI Comments Details: Mr Romeo is a very pleasant male. He is a patient of Dr Lundy. He is seen today for the following urologic conditions. - gross hematuria - negative evaluation 2017 - lower urinary tract symptoms - prostate cancer Telemedicine Evaluation 15 min Consultation Tizra Emre Video Tolerated biopsy well Discussed biopsy results Low volume prostate cancer in concordance with imaging and clinical evaluation Is of higher grade than expected Will obtain SynAgile genetics and PET-CT for further evaluation Prostate cancer 07/2024, grade group 3 and grade group 4 low volume Michael score: 8 (3+5) (B2.5), 7 (4+3) (b2.0), 7 (3+4) (C2.0), (c2.0 is too small to grade) % of pattern 4: 52% % of pattern 5: 1%, Grade group: 4, 3, and 2 Tumor quantitation: Number cores positive: 4 Total number of cores: 21 % of tissue involved: 8% Periprostatic fat inv.: Not identified. Seminal vesicle inv.: Not identified. Perineural inv.: Not identified. Lymphatic and/or vascular invasion: Not identified. Discussed recent prostate MRI 12 mm x 5 mm lesion seen right posterolateral peripheral zone PI-RADS 4. Prostate size 30 cc. (Series 7, images 18 and 19) Recommend targeted biopsy due to size greater than 10 mm Consistent with location of right based nodule PSA 04/11 3.8, 10/11 3.3, 05/14 4.1 Significantly improved voiding following procedure with PVR 0 cc Lower Urinary Tract Symptoms: Has some mild weakness of stream Current visit is for further evaluation of, lower urinary tract symptoms. Current treatment includes 5-AR - many years. Prostate Symptom Score 06/06 Moderate (9-19), Bother 2 07/05 , Mild (0-8), Bother 2 Symptoms include / , incomplete emptying, weak stream, and are stable. Results from testing include Cystoscopy Enlarged median lobe 05/06 cytology negative PSA 2016 0.7, 07/09 2.4, 07/10 3.2, 10/10 4.6, 04/11 3.8 GreenLight laser prostatectomy 4/22 [facility] Medical History Osteoarthritis H/O abdominal ultrasound HLD (hyperlipidemia) Hypothyroid Benign prostatic hyperplasia with lower urinary tract symptoms Hematuria Surgical History H/O colonoscopy History of prostate surgery History of hernia repair Social History Are you a primary director of critical care to a significant other at home: No Do you presently have visiting nurse or other home services: No Patient Tobacco Use Status: Former Tobacco user Tobacco use type: Cigarette Years Smoked: 4 Review of Systems Const All systems reviewed & are unremarkable except as noted in HPI and below Reports no additional complaints Resp Reports no additional complaints GI Reports no additional complaints Reports as per HPI Musc Reports no additional complaints Physical Exam Telemedicine evaluation Appropriate responses Regular breathing rate and rhythm HEENT Head: Yes normal to inspection Ears: hearing grossly normal bilaterally Eyes General: appearance normal, both eyes and all related structures Neck Neck: Yes normal visual inspection Chest Chest palpation & inspection: normal inspection of the chest Resp Effort & Inspection: normal respiratory effort and able to speak in complete sentences Telehealth Telehealth Telehealth Platform: Telephone Location of provider rendering services: practice address Location of patient: address on file Patient Identification confirmed using: Name, : Yes Telehealth method: voice only Patient verbally consented to treatment: Yes Patient verbally consented to billing insurance company: Yes Patient informed of any privacy concerns related to visit: Yes Assessment & Plan Assessment & Plan (1) Hormone sensitive prostate cancer: Code(s): C61 - Malignant neoplasm of prostate; Z19.1 - Hormone sensitive malignancy status Category: Medical Plan PET-CT Prolaris Four week follow-up Orders: Orders PET CT fusion skull to thigh Today C61 - Malignant neoplasm of prostate, Z19.1 - Hormone sensitive malignancy status Patient Instructions: This note is constructed using voice recognition software. While every effort has been made to ensure accuracy tailor women's garment alteration errors may have been included. Imaging studies, laboratory and physical exam results were discussed and reviewed in detail. No major barriers to patient understanding were identified. An opportunity to ask questions regarding the treatment plan was provided. All questions were answered. The patient expressed understanding and agreement with the above treatment plan. The patient is aware they should contact our office by phone for worsening of their current condition or the appearance of new urologic symptoms. Compliance is encouraged with any medications and followup testing that is ordered. It is a privilege to participate in the urologic care of your patient. If you have any questions or concerns regarding treatment for the above conditions, or other urologic issues, please do not hesitate to contact me. The office telephone contact is [phone]. Sincerely, Dr Napoleon Dao MD, JAJA [facility] - Urology Compassionate Specialist Care for the Genitourinary System Coding Level of Care Code Tele Est Pt Level 4 (10272) Complex EM visit Add On G2211 Diagnoses Hormone sensitive prostate cancer C61; Z19.1
== END 2024-08-19 09:19 | disposition home or self-care (01) ==
LOC: HO.HUSH 08:40
PROVIDERS: PCP Internal Medicine; Visit Provider Urology
DX: C61 Malignant neoplasm of prostate (principal); Z19.1 Hormone sensitive malignancy status
CPT/HCPCS: 99214; G2211

== ENCOUNTER → 2024-08-19 08:40 | Outpatient (BNVA) | payer MEDICARE, SELFPAY | PROVIDERS: PCP Internal Medicine; Visit Provider Urology | DX: Z13.89 Encounter for screening for other disorder (principal) ==

== ENCOUNTER 2024-09-27 08:23 | Outpatient (AMB) | payer MEDICARE, SELFPAY ==
--- NOTE | 2024-09-27 08:25 | MHC.OFFVIS ---
Intake Visit Reasons: 6w/PSMA Intake Note: Patient is present for 6W/PSMA Urology Medication:NONE Antibiotic Allergy:NONE Blood Thinner:NONE Solar Project Engineer Required: No Allergies No Known Allergies Allergy (Verified 09/27/24 08:27) HPI Comments Details: Mr Romeo is a very pleasant male. He is a patient of Dr Lundy. He is seen today for the following urologic conditions. - gross hematuria - negative evaluation 2017 - lower urinary tract symptoms - prostate cancer Accompanied by Printed information provided consisting of pathology report, Prolaris report, PET-CT Recommend single modal therapy Risks and benefits discussed comparing radiation and cryotherapy He would like to proceed with cryotherapy Prostate cancer 07/2024, grade group 3 and grade group 4 low volume Staging - PET-CT highlights prostate right side. Question small right obturator node - genetics Prolaris shows low moderate cell cycle score with recommendation for single modal therapy Michael score: 8 (3+5) (B2.5), 7 (4+3) (b2.0), 7 (3+4) (C2.0), (c2.0 is too small to grade) % of pattern 4: 52% % of pattern 5: 1%, Grade group: 4, 3, and 2 Tumor quantitation: Number cores positive: 4 Total number of cores: 21 % of tissue involved: 8% Periprostatic fat inv.: Not identified. Seminal vesicle inv.: Not identified. Perineural inv.: Not identified. Lymphatic and/or vascular invasion: Not identified. Discussed recent prostate MRI 12 mm x 5 mm lesion seen right posterolateral peripheral zone PI-RADS 4. Prostate size 30 cc. (Series 7, images 18 and 19) Recommend targeted biopsy due to size greater than 10 mm Consistent with location of right based nodule PSA 04/11 3.8, 10/11 3.3, 05/14 4.1 Significantly improved voiding following procedure with PVR 0 cc Lower Urinary Tract Symptoms: Has some mild weakness of stream Current visit is for further evaluation of, lower urinary tract symptoms. Current treatment includes 5-AR - many years. Prostate Symptom Score 06/06 Moderate (9-19), Bother 2 07/05 , Mild (0-8), Bother 2 Symptoms include 07/05 , incomplete emptying, weak stream, and are stable. Results from testing include Cystoscopy Enlarged median lobe 05/06 cytology negative PSA 2016 0.7, 07/09 2.4, 3/23 3.2, 10/10 4.6, 04/11 3.8 GreenLight laser prostatectomy 08/09 [facility] Medical History Osteoarthritis H/O abdominal ultrasound HLD (hyperlipidemia) Hypothyroid Benign prostatic hyperplasia with lower urinary tract symptoms Hematuria Surgical History H/O colonoscopy History of prostate surgery History of hernia repair Social History Are you a primary palliative care coordinator to a significant other at home: No Do you presently have visiting nurse or other home services: No Patient Tobacco Use Status: Former Tobacco user Tobacco use type: Cigarette Years Smoked: 4 Review of Systems Const Denies chills and Denies fever(s) Card Reports no additional complaints and Denies syncope Resp Denies cough GI Denies abdominal pain and Denies heartburn Reports as per HPI and Denies change in libido Neuro Denies syncope Psych Denies change in libido Endo Denies change in libido Physical Exam Const General: cooperative, healthy appearing, comfortable and no acute distress Orientation/consciousness: patient oriented x3 HEENT Face and sinus: Yes normal facial exam Mouth: moist mucous membranes Neck Neck: Yes normal visual inspection, Yes full ROM and Yes trachea midline Chest Chest palpation & inspection: normal inspection of the chest Resp Effort & Inspection: normal respiratory effort, able to speak in complete sentences and no respiratory distress GI Inspection: Yes normal to inspection Back/Spine/Pelvis Cervical Spine: normal cervical lordosis Thoracic/Lumbar Spine: thoracic and lumbar spine normal to inspection Skin General skin exam: no rashes or lesions noted Neuro General: patient oriented x3, gait normal, tone normal and moves all extremities Extrem General: Yes normal to inspection and Yes capillary refill normal Results AMB Urinalysis, Automated UA Leukoctes 0 Luisito/uL Last Edit by GLORIA Ramirez on 09/27/24 08:36 UA Nitrite Negative Last Edit by GLORIA Ramirez on 09/27/24 08:36 UA Urobilinogen 0.2 mg/dL Last Edit by GLORIA Ramirez on 09/27/24 08:36 UA Protein 0 mg/dL Last Edit by GLORIA Ramirez on 09/27/24 08:36 UA pH 6.0 Last Edit by GLORIA Ramirez on 09/27/24 08:36 UA Blood 10 Oracio/uL Last Edit by GLORIA Ramirez on 09/27/24 08:36 UA Specific [place] 1.015 Last Edit by GLORIA Ramirez on 09/27/24 08:36 UA Ketone Negative Last Edit by GLORIA Ramirez on 09/27/24 08:36 UA Bilirubin 0 mg/dL Last Edit by GLORIA Ramirez on 09/27/24 08:36 UA Glucose 0 mg/dL Last Edit by GLORIA Ramirez on 09/27/24 08:36 Assessment & Plan Assessment & Plan (1) Hormone sensitive prostate cancer: Code(s): C61 - Malignant neoplasm of prostate; Z19.1 - Hormone sensitive malignancy status Category: Medical Plan Risks, benefits and alternatives to therapy were discussed. These include but are not limited to infection, bleeding, damage to local organs and tissues, need for further interventions. Anesthetic risks regarding cardiac arrhythmia, blood clots, and potential mortality were discussed. The patient understands the typical recovery time and the outpatient nature of the procedure. After consideration of these risks the patient gives full informed consent and they wish to move ahead with the procedure. - prostate cryotherapy Orders: Orders AMB Urinalysis Automated Today Z13.9 - Encounter for screening, unspecified Patient Instructions: This note is constructed using voice recognition software. While every effort has been made to ensure accuracy spanish professor errors may have been included. Imaging studies, laboratory and physical exam results were discussed and reviewed in detail. No major barriers to patient understanding were identified. An opportunity to ask questions regarding the treatment plan was provided. All questions were answered. The patient expressed understanding and agreement with the above treatment plan. The patient is aware they should contact our office by phone for worsening of their current condition or the appearance of new urologic symptoms. Compliance is encouraged with any medications and followup testing that is ordered. It is a privilege to participate in the urologic care of your patient. If you have any questions or concerns regarding treatment for the above conditions, or other urologic issues, please do not hesitate to contact me. The office telephone contact is [phone]. Sincerely, Dr Napoleon Dao MD, JAJA [facility] - Urology Compassionate Specialist Care for the Genitourinary System Coding Level of Care Code Est Pt Level 4 (06323) Complex EM visit Add On G2211 Diagnoses Hormone sensitive prostate cancer C61; Z19.1
--- OUTSIDE RECORDS SUMMARY | 2024-09-27 08:37 | XMS_ITS | Clinical Summary ---
Author Organization [facility] Address [address] [place] [address] Phone Care Team Providers Care Heavy Coil Winder Name Role Phone Unavailable Primary Care Provider Unavailabl e Encounters Date Type Department Care Team Description 08/31/2024 10:57 AM EDT - 08/31/2024 11:59 PM EDT Hospital Encounter [facility] PET Scan [address] [place] [address] Malignant neoplasm of prostate (CMS/HCC V24, CMS/HCC V28); Hormone sensitive malignancy status Discharge Disposition: Home or Self Care from Last 3 Months Social History Tobacco Use Types Packs/Day Years Used Date Smoking Tobacco: Never Assessed Sex and Gender Information Value Date Recorded Sex Assigned at Not on file Legal Sex Male 4:22 AM EST Gender Identity Not on file Sexual Orientation Not on file Plan of Treatment Health Maintenance Due Date Last Done Comments DTaP,Tdap,and Td Vaccines (1 - Tdap) 01/29/1964 Cholesterol Screening (Lipid Panel) 03/23/2022 Depression Screening 03/23/2022 Falls Risk Assessment 03/23/2022 Medicare Annual Wellness Visit 03/23/2022 Social Influencers of Health Screening 03/23/2022 COVID-19 Vaccine (8 - Pfizer risk 2023- season) 2024 12/24/2023, 02/18/2023, 04/25/2022, Additional history exists Pneumococcal Vaccine: 50+ Years Completed 01/10/2019, 06/02/2015 Zoster Vaccines Completed 04/26/2020, 12/29/2019 RSV Immunization Adult Patients Completed 03/23/2023 Influenza Vaccine Completed 02/04/2024, , 02/03/2022, Additional history exists HIB Vaccines Aged Out No longer eligi ble based on patient's age to complete this topic HPV Vaccines Aged Out No longer eligi ble based on patient's age to complete this topic Hepatitis A Vaccines Aged Out No long er eligible based on patient's age to complete this topic Hepatitis B Vaccines Aged Out No long er eligible based on patient's age to complete this topic IPV Vaccines Aged Out No longer eligi ble based on patient's age to complete this topic MMR Vaccines Aged Out No longer eligi ble based on patient's age to complete this topic Meningococcal ACWY Vaccine Aged Out N o longer eligible based on patient's age to complete this topic Meningococcal B Vaccine Aged Out No l onger eligible based on patient's age to complete this topic RSV Immunization Patients Under 20 months Aged Out No longer eligible based on patient's age to complete this topic Varicella Vaccines Aged Out No longer eligible based on patient's age to complete this topic Procedures Procedure Name Priority Date/Time Associated Diagnosis Comments PET CT SKULL TO MID THIGH INITIAL Routine 08/31/2024 1:25 PM EDT Malignant neoplasm of prostate (CMS/HCC V24, CMS/HCC V28) Hormone sensitive malignancy status from Last 3 Months Results * PET CT Skull to Mid Thigh Initial (08/31/2024 1:25 PM EDT) Anatomical Region Laterality Modality Body Radiographic Estephania ging 09/01/2024 4:57 AM EDT Impressions 09/01/2024 5:20 AM EDT 1. ??Focal activity within the right prostate gland in keeping with biopsy- proven prostate carcinoma 2. ??Nonspecific focal activity within nonenlarged right obturator lymph node which may represent metastatic disease -------- FINAL REPORT -------- Dictated By: Lala Gale Dictated Date: 09/01/2024 04:57 ET Assigned Physician: Lala Gale Reviewed and Electronically Signed By: Lala Gale Signed Date: 09/01/2024 05:20 ET Workstation ID: [id number] Transcribed By: Self Edit Transcribed Date: 09/01/2024 04:57 ET Narrative 09/01/2024 5:20 AM EDT HISTORY: Prostate carcinoma, initial treatment PRIOR IMAGING STUDIES: None RADIOPHARMACEUTICAL: 10 mCi F-18 piflufolastat IV INJECTION SITE: Left antecubital INJECTION TIME TO SCAN TIME: 66 min PROCEDURE: Routine body PET-CT imaging performed from the head to the upper thighs and reconstructed in axial, coronal, sagittal planes at the computer workstation with fused data from both the PET imaging study and attenuation correction CT study. Please note, CT imaging utilized strictly for attenuation correction and anatomic localization: CT not designed to produce and cannot replace evoxg-az-fdq-art true diagnostic CT examination with specific protocols. ??Standardized uptake values (SUV) normalized to patient body weight and indicate the highest active concentration (SUV max) in a given disease site. DLP: ??513 mGy-cm IMAGING FINDINGS: Reference Values SUV Max: Parotid: 21 Blood Pool: ??1.9 Liver: ??7.4 Expected pattern of physiological activity noted. HEAD AND NECK: No abnormal activity. THORAX: No abnormal activity. ABDOMEN/PELVIS: Right prostatic activity SUV max 14.2. 5 mm right obturator lymph node SUV max 4.7. Nonspecific bowel activity. ??Low-attenuation lesions in the liver without significant activity. MUSCULOSKELETAL: No abnormal activity. Procedure Note Lala Gale MD - 09/01/2024 HISTORY: Prostate carcinoma, initial treatment PRIOR IMAGING STUDIES: None RADIOPHARMACEUTICAL: 10 mCi F-18 piflufolastat IV INJECTION SITE: Left antecubital INJECTION TIME TO SCAN TIME: 66 min PROCEDURE: Routine body PET-CT imaging performed from the head to the upper thighsand reconstructed in axial, coronal, sagittal planes at the computerworkstation with fused data from both the PET imaging study andattenuation correction CT study. Please note, CT imaging utilized strictlyfor attenuation correction and anatomic localization: CT not designed toproduce and cannot replace kxull-zn-usv-art true diagnostic CT examinationwith specific protocols. Standardized uptake values (SUV) normalized topatient body weight and indicate the highest active concentration (SUVmax) in a given disease site. DLP: 513 mGy-cm IMAGING FINDINGS: Reference Values SUV Max: Parotid: 21 Blood Pool: 1.9 Liver: 7.4 Expected pattern of physiological activity noted. HEAD AND NECK: No abnormal activity. THORAX: No abnormal activity. ABDOMEN/PELVIS: Right prostatic activity SUV max 14.2. 5 mm right obturator lymph node SUV max 4.7. Nonspecific bowel activity. Low-attenuation lesions in the liver withoutsignificant activity. MUSCULOSKELETAL: No abnormal activity. IMPRESSION: 1. Focal activity within the right prostate gland in keeping withbiopsy-proven prostate carcinoma 2. Nonspecific focal activity within nonenlarged right obturator lymphnode which may represent metastatic disease -------- FINAL REPORT -------- Dictated By: Lala Gale Dictated Date: 09/01/2024 04:57 ET Assigned Physician: Lala Gale Reviewed and Electronically Signed By: Lala Gale Signed Date: 09/01/2024 05:20 ET Workstation ID: [id number] Transcribed By: Self Edit Transcribed Date: 09/01/2024 04:57 ET Napoleon Dao MD IM NM PROCEDURES Final Resul t from Last 3 Months Insurance MEDICARE
== END 2024-09-27 09:01 | disposition home or self-care (01) ==
LOC: HO.HUSH 08:24
PROVIDERS: PCP Internal Medicine; Visit Provider Urology
DX: C61 Malignant neoplasm of prostate (principal); Z19.1 Hormone sensitive malignancy status; Z13.9 Encounter for screening, unspecified
CPT/HCPCS: 99214; G2211

== ENCOUNTER → 2024-09-27 08:23 | Outpatient (BNVA) | payer MEDICARE, SELFPAY | PROVIDERS: PCP Internal Medicine; Visit Provider Urology | DX: C61 Malignant neoplasm of prostate (principal); Z19.1 Hormone sensitive malignancy status | CPT/HCPCS: 81003; 99212 ==

== ENCOUNTER 2024-11-24 10:31 | Outpatient (AMB) | payer MEDICARE, SELFPAY ==
--- NOTE | 2024-11-24 10:32 | A.OFFVIS_ITS ---
Intake Visit Reasons: CONSULT WITH PROVIDER Intake Note: Patient is present for follow up Urology Medication:Finasteride Antibiotic Allergy:NONE Blood Thinner:NONE Bilingual Middle School Teacher Required: No Accompanied by: Self / Same As Patient Allergies No Known Allergies Allergy (Verified 12/20/24 15:36) HPI Comments Details: Mr Romeo is a very pleasant male. He is a patient of Dr Lundy. He is seen today for the following urologic conditions. - gross hematuria - negative evaluation 2016 - lower urinary tract symptoms - prostate cancer Telemedicine Evaluation 15 min Consultation [employer] Video Discussion regarding targeted cryotherapy Based on consideration from daughter would like to be assessed for external beam radiation Prostate cancer 07/2024, grade group 3 and grade group 4 low volume Staging - PET-CT highlights prostate right side. Question small right obturator node - Genetics Prolaris shows low moderate cell cycle score with recommendation for single modal therapy [place] score: 8 (3+5) (B2.5), 7 (4+3) (b2.0), 7 (3+4) (C2.0), (c2.0 is too small to grade) % of pattern 4: 52% % of pattern 5: 1%, Grade group: 4, 3, and 2 Tumor quantitation: Number cores positive: 4 Total number of cores: 21 % of tissue involved: 8% Periprostatic fat inv.: Not identified. Seminal vesicle inv.: Not identified. Perineural inv.: Not identified. Lymphatic and/or vascular invasion: Not identified. Discussed recent prostate MRI 12 mm x 5 mm lesion seen right posterolateral peripheral zone PI-RADS 4. Prostate size 30 cc. (Series 7, images 18 and 19) Recommend targeted biopsy due to size greater than 10 mm Consistent with location of right based nodule PSA 04/11 3.8, 10/11 3.3, 05/14 4.1 Significantly improved voiding following procedure with PVR 0 cc Lower Urinary Tract Symptoms: Has some mild weakness of stream Current visit is for further evaluation of, lower urinary tract symptoms. Current treatment includes 5-AR - many years. Prostate Symptom Score 06/06 Moderate (9-19), Bother 2 07/05 , Mild (0-8), Bother 2 Symptoms include / , incomplete emptying, weak stream, and are stable. Results from testing include Cystoscopy Enlarged median lobe 05/06 cytology negative PSA 2016 0.7, 07/09 2.4, 07/10 3.2, 10/10 4.6, 04/11 3.8 GreenLight laser prostatectomy 08/09 [facility] Medical History (Updated 08/19/24 @ 08:54 by Napoleon Dao MD) Osteoarthritis H/O abdominal ultrasound HLD (hyperlipidemia) Hypothyroid Benign prostatic hyperplasia with lower urinary tract symptoms Hematuria Surgical History (Updated 12/01/24 @ 09:38 by Kathy Quintana RN) Hx of prostate biopsy H/O colonoscopy History of prostate surgery History of hernia repair Social History Are you a primary healthcare administration internship to a significant other at home: No Do you presently have visiting nurse or other home services: No Patient Tobacco Use Status: Former Tobacco user Tobacco use type: Cigarette Years Smoked: 4 Review of Systems Const All systems reviewed & are unremarkable except as noted in HPI and below Reports no additional complaints Resp Reports no additional complaints GI Reports no additional complaints Reports as per HPI Musc Reports no additional complaints Physical Exam Telemedicine evaluation Appropriate responses Regular breathing rate and rhythm HEENT Head: Yes normal to inspection Ears: hearing grossly normal bilaterally Eyes General: appearance normal, both eyes and all related structures Neck Neck: Yes normal visual inspection Chest Chest palpation & inspection: normal inspection of the chest Resp Effort & Inspection: normal respiratory effort and able to speak in complete sentences Telehealth Telehealth Telehealth Platform: [employer] Location of provider rendering services: practice address Location of patient: address on file Patient Identification confirmed using: Name, : Yes Telehealth method: video Patient verbally consented to treatment: Yes Patient verbally consented to billing insurance company: Yes Patient informed of any privacy concerns related to visit: Yes Minutes spent on Phone/Video with Pt.: 15 Assessment & Plan Assessment & Plan (1) Hormone sensitive prostate cancer: Code(s): C61 - Malignant neoplasm of prostate; Z19.1 - Hormone sensitive malignancy status Category: Medical Plan Review re external beam radiation Patient Instructions: This note is constructed using voice recognition software. While every effort has been made to ensure accuracy suspension cord tier errors may have been included. Imaging studies, laboratory and physical exam results were discussed and reviewed in detail. No major barriers to patient understanding were identified. An opportunity to ask questions regarding the treatment plan was provided. All questions were answered. The patient expressed understanding and agreement with the above treatment plan. The patient is aware they should contact our office by phone for worsening of their current condition or the appearance of new urologic symptoms. Compliance is encouraged with any medications and followup testing that is ordered. It is a privilege to participate in the urologic care of your patient. If you have any questions or concerns regarding treatment for the above conditions, or other urologic issues, please do not hesitate to contact me. The office telephon e contact is [phone]. Sincerely, Dr Napoleon Dao MD, [facility] - Urology Compassionate Specialist Care for the Genitourinary System Coding Level of Care Code Tele Est Pt Level 3 (50437) Complex EM visit Add On G2211 Diagnoses Hormone sensitive prostate cancer C61; Z19.1
--- OUTSIDE RECORDS SUMMARY | 2024-11-24 11:07 | XMS_ITS | Clinical Summary ---
Author Organization [facility] Address [address] [place] [address] [place] [phone] Phone Care Team Providers Care Operations Developer Name Role Phone Marcel Lundy MD Primary Care Provider [phone] Self-Referred, Patient Unavailable Unavailab le Encounters Date Type Department Care Team Description 11/18/2024 3:00 PM EDT Office Visit [facility] Urology [address]S [address] [address] Napoleon Dodson MD Malignant neoplasm of prostate (Primary Dx) 11/18/2024 Ancillary Orders [facility] Radiology [address] [place] [phone] Napoleon Dodson MD 11/18/2024 Ancillary Orders [facility] Radiology [address] [place] [phone] Napoleon Dodson MD 08/31/2024 Ancillary Procedure [facility] [address] [place] [phone] Napoleon Dodson MD from Last 3 Months Social History Tobacco Use Types Packs/Day Years Used Date Smoking Tobacco: Former Cigarettes Q uit: 11/18/1974 Tobacco Cessation:Counseling Given: Not Answered Education Answer Date Recorded Are you interested [...] Orientation Straight 10/20/2024 12 :41 PM EDT Last Filed Vital Signs Vital Sign Reading Time Taken Comments Blood Pressure 161/70 11/18/2024 2:19 PM EDT Pulse 62 11/18/2024 2:19 PM EDT Temperature - - Respiratory Rate - - Oxygen Saturation 100% 11/18/2024 2:19 PM EDT Inhaled Oxygen Concentration - - Weight - - Height - - Body Mass Index - - Plan of Treatment Health Maintenance Due Date Last Done Comments Adult Td,Tdap Booster 1944 LIPID PANEL 1944 DEPRESSION SCREENING 1956 SMOKING Hx and SMOKELESS TOBACCO SCREENING 01/29/1957 COVID-19 VACCINE ( season) 2024 12/24/2023, 02/18/2023, 04/25/2022, Additional history exists PNEUMOCOCCAL VACCINES (50+ years) Completed 01/10/2019, 06/02/2015 ZOSTER VACCINES Completed 04/26/2020, 12/29/2019 RSV VACCINE Completed 03/23/2023 HEPATITIS A VACCINES Aged Out No long er eligible based on patient's age to complete this topic HIB VACCINES Aged Out No longer eligi ble based on patient's age to complete this topic MENINGOCOCCAL VACCINES (ACWY) Aged Out No longer eligible based on patient's age to complete this topic MENINGOCOCCAL VACCINES (B) Aged Out N o longer eligible based on patient's age to complete this topic Medical Devices Not on file Insurance MEDICARE PART A & B [facility] [employer] SUPPLEMENT MEDICARE PART A & B [facility] [employer] SUPPLEMENT MEDICARE PART A & B [employer] SUPPLEMENT MEDICARE PART A & B [employer] MED[employer] SUPPLEMENT MEDICARE PART A & B [employer] SUPPLEMENT MEDICARE PART A & B [employer] SUPPLEMENT Care Teams Operations Developer Relationship Specialty Start Date End Date Marcel Lundy MD [address] [place] [address] PCP - General Internal Medicine 10/20/24 Self-Referred, Patient Referring Physician 10/26/24 Additional Source Comments The information contained in this document represents components of the legal health record. It is not the complete legal health record.[facility]
--- OUTSIDE RECORDS SUMMARY | 2024-11-24 11:08 | XMS_ITS | Clinical Summary ---
Author Organization [facility] Address [address] [place] [address] Phone Care Team Providers Care Power Checker Name Role Phone Unavailable Primary Care Provider Unavailabl e Encounters Date Type Department Care Team Description 08/31/2024 10:57 AM EDT - 08/31/2024 11:59 PM EDT Hospital Encounter [facility] PET Scan [address] [place] [address] Malignant neoplasm of prostate (CMS/HCC [...] Tdap) 01/29/1964 Cholesterol Screening (Lipid Panel) 03/23/2022 Falls Risk Assessment 03/23/2022 Medicare Annual Wellness Visit 03/23/2022 Social Influencers of Health Screening 03/23/2022 Depression Screening 04/20/2024 COVID-19 Vaccine ( season) 2024 12/24/2023, 02/18/2023, 04/25/2022, Additional history exists Influenza Vaccine (#1) 2024 , 02/02/2023, 02/03/2022, Additional history exists Pneumococcal Vaccine: 50+ Years Completed 01/10/2019, 06/02/2015 Zoster Vaccines Completed 04/26/2020, 12/29/2019 RSV Immunization Adult Patients Completed 03/23/2023 HIB Vaccines Aged Out No longer eligi [...] EDT Impressions 09/01/2024 5:20 AM EDT 1. Focal activity within the right prostate gland in keeping with biopsy-proven prostate carcinoma 2. Nonspecific focal activity within nonenlarged right obturator lymph node which may represent metastatic disease -------- FINAL REPORT -------- Dictated By: Lala Gale Dictated Date: 09/01/2024 04:57 ET Assigned Physician: Lala Gale Reviewed and Electronically Signed By: Lala Gale Signed Date: 09/01/2024 05:20 ET Workstation ID: [id number] Transcribed By: Self Edit Transcribed Date: 09/01/2024 [...] not designed to produce and cannot replace vrtnf-yv-pby-art true diagnostic CT examination with specific protocols. Standardized uptake values (SUV) normalized to patient body weight and indicate the highest active concentration (SUV max) in a given disease site. DLP: 513 mGy-cm IMAGING FINDINGS: Reference Values SUV Max: Parotid: 21 Blood Pool: 1.9 Liver: 7.4 Expected pattern of physiological activity noted. HEAD AND NECK: No abnormal activity. THORAX: No abnormal activity. ABDOMEN/PELVIS: Right prostatic activity SUV max 14.2. 5 mm right obturator lymph node SUV max 4.7. Nonspecific bowel activity. Low-attenuation lesions in the liver without significant activity. [...] CT not designed toproduce and cannot replace pjdfk-tb-msu-art true diagnostic CT examinationwith specific protocols. Standardized [...] Signed Date: 09/01/2024 05:20 ET Workstation ID: [id number] Transcribed By: Self Edit Transcribed Date: 09/01/2024 04:57 ET Napoleon Dao MD IM NM PROCEDURES Final Resul t from Last 3 Months Insurance MEDICARE
== END 2024-11-24 11:55 | disposition home or self-care (01) ==
LOC: HO.HUSH 10:31
PROVIDERS: PCP Internal Medicine; Visit Provider Urology
DX: C61 Malignant neoplasm of prostate (principal); Z19.1 Hormone sensitive malignancy status
CPT/HCPCS: 99213; G2211

== ENCOUNTER 2024-12-02 09:51 | Outpatient (AMB) | payer MEDICARE, SELFPAY ==
--- NOTE | 2024-12-02 09:52 | A.OFFVIS_ITS ---
Intake Visit Reasons: Discuss treatment concerns Intake Note: PT PRESENTS FOR: TELEHEALTH TO DISCUSS TREATMENTS UROLOGY MEDICATIONS: FINASTERIDE BLOOD THINNERS: NONE Lime Hide Inspector Required: No Accompanied by: Self / Same As Patient Allergies No Known Allergies Allergy (Verified 12/02/24 09:52) HPI Comments Details: Mr Romeo is a very pleasant male. He is a patient of Dr Lundy. He is seen today for the following urologic conditions. - gross hematuria - negative evaluation 2016 - lower urinary tract symptoms - prostate cancer Telemedicine Evaluation 15 min Consultation [employer] Eleazar would prefer not to move ahead with targeted cryotherapy Case had been discussed through his daughter with [facility] prostate tumor board They had made a very conservative recommendation with 18 months GnRH and external beam radiation They were not aware of the genetics that had been performed which showed low overall cell cycle score leaning towards single modal therapy Due to Eleazar is concerns we can organize external beam radiation Would recommend only a single GnRH injection with space oar Since his daughter works at [facility] he would prefer therapy to be received at [facility] which has an affiliation Plan GnRH and placed referral Prostate cancer 07/2024, grade group 3 and grade group 4 low volume Staging - PET-CT highlights prostate right side. Question small right obturator node - Genetics Prolaris shows low moderate cell cycle score with recommendation for single modal therapy [place] score: 8 (3+5) (B2.5) 10%, 7 (4+3) (b2.0) 80%, 7 (3+4) (C2.0) 30%, (c2.0 is too small to grade) % of pattern 4: 52% % of pattern 5: 1%, Grade group: 4, 3, and 2 Tumor quantitation: Number cores positive: 4 Total number of cores: 21 % of tissue involved: 8% Periprostatic fat inv.: Not identified. Seminal vesicle inv.: Not identified. Perineural inv.: Not identified. Lymphatic and/or vascular invasion: Not brittni ntified. Prostate MRI 12 mm x 5 mm lesion seen right posterolateral peripheral zone PI-RADS 4. Prostate size 30 cc. (Series 7, images 18 and 19) Recommend targeted biopsy due to size greater than 10 mm Consistent with location of right based nodule PSA 04/11 3.8, 10/11 3.3, 05/14 4.1 Significantly improved voiding following procedure with PVR 0 cc Lower Urinary Tract Symptoms: Has some mild weakness of stream Current visit is for further evaluation of, lower urinary tract symptoms. Current treatment includes 5-AR - many years. Prostate Symptom Score 06/06 Moderate (9-19), Bother 2 07/05 , Mild (0-8), Bother 2 Symptoms include / , incomplete emptying, weak stream, and are stable. Results from testing include Cystoscopy Enlarged median lobe 05/06 cytology negative PSA 2016 0.7, 07/09 2.4, 07/10 3.2, 10/10 4.6, 04/11 3.8 GreenLight laser prostatectomy 08/09 [facility] Medical History (Updated 08/19/24 @ 08:54 by Napoleon Dao MD) Osteoarthritis H/O abdominal ultrasound HLD (hyperlipidemia) Hypothyroid Benign prostatic hyperplasia with lower urinary tract symptoms Hematuria Surgical History (Updated 12/01/24 @ 09:38 by Kathy Quintana RN) Hx of prostate biopsy H/O colonoscopy History of prostate surgery History of hernia repair Social History Are you a primary healthcare or medical to a significant other at home: No Do you presently have visiting nurse or other home services: No Patient Tobacco Use Status: Former Tobacco user Tobacco use type: Cigarette Years Smoked: 4 Review of Systems Const All systems reviewed & are unremarkable except as noted in HPI and below Reports no additional complaints Resp Reports no additional complaints GI Reports no additional complaints Reports as per HPI Musc Reports no additional complaints Physical Exam Telemedicine evaluation Appropriate responses Regular breathing rate and rhythm HEENT Head: Yes normal to inspection Ears: hearing grossly normal bilaterally Eyes General: appearance normal, both eyes and all related structures Neck Neck: Yes normal visual inspection Chest Chest palpation & inspection: normal inspection of the chest Resp Effort & Inspection: normal respiratory effort and able to speak in complete sentences Telehealth Telehealth Telehealth Platform: [facility] Location of provider rendering services: practice address Location of patient: address on file Patient Identification confirmed using: Name, : Yes Telehealth method: video Patient verbally consented to treatment: Yes Patient verbally consented to billing insurance company: Yes Patient informed of any privacy concerns related to visit: Yes Minutes spent on Phone/Video with Pt.: 15 Assessment & Plan Assessment & Plan (1) Hormone sensitive prostate cancer: Code(s): C61 - Malignant neoplasm of prostate; Z19.1 - Hormone sensitive malignancy status Category: Medical Plan Refer [facility] Organize GnRH Plan SpaceO[employer] with marker Patient Instructions: This note is constructed using voice recognition software. While every effort has been made to ensure accuracy center customer service associate errors may have been included. Imaging studies, laboratory and physical exam results were discussed and reviewed in detail. No major barriers to patient understanding were identified. An opportunity to ask questions regarding the treatment plan was provided. All questions were answered. The patient expressed understanding and agreement with the above treatment plan. The patient is aware they should contact our office by phone for worsening of their current condition or the appearance of new urologic symptoms. Compliance is encouraged with any medications and followup testing that is ordered. It is a privilege to participate in the urologic care of your patient. If you have any questions or concerns regarding treatment for the above conditions, or other urologic issues, please do not hesitate to contact me. The office telephone contact is [phone]. Sincerely, Dr Napoleon Dao MD, [facility] - Urology Compassionate Specialist Care for the Genitourinary System Coding Level of Care Code Tele Est Pt Level 4 (01545) Complex EM visit Add On G2211 Diagnoses Hormone sensitive prostate cancer C61; Z19.1
--- OUTSIDE RECORDS SUMMARY | 2024-12-02 10:06 | XMS_ITS | Clinical Summary ---
Author Organization [facility] Address [address] [place] [address] Phone Care Team Providers Care Business Operations Coordinator Name Role Phone Unavailable Primary Care Provider Unavailabl e Social History Tobacco Use Types Packs/Day Years [...] on patient's age to complete this topic Insurance MEDICARE
--- OUTSIDE RECORDS SUMMARY | 2024-12-02 10:06 | XMS_ITS | Encounter Summary ---
Author Organization [facility] Address [facility] hospital [email or web address] [facility] [address] [place] [phone] Phone Care Team Providers Care Director Of Operations Support Name Role Phone Marcel Lundy MD Primary Care Provider [phone] Self-Referred, Patient Unavailable Unavailab Jenise Guevara MD Unavailable Encounter Details Date Type Department Care Team (Late st Contact Info) Description 12/01/2024 Orders Only [facility] [address] [place] [address], [address] [place] [address] Jenise Wilson MD [address] [place] [phone] [email or web address] Prostate cancer (Primary Dx) Social History Tobacco Use Types Packs/Day Years [...] Care Team (Late st Contact Info) Description 12/06/2024 8:00 AM EDT Office Visit [facility] [address] [place] [address], [address] [place] [address] Jenise Wilson MD [address] [place] [phone] [email or web address] Scheduled Orders Name Type Priority Associated Diagnoses Orde r Schedule Outside Pathology Review Pathology and Cytology Routine Prostate cancer Expected: 12/01/2024, Expires: 12/01/2025 documented as of this encounter Visit Diagnoses Diagnosis Prostate cancer- Primary Malignant neoplasm of prostate documented in this encounter Care Teams Director Of Operations Support Relationship Specialty Start Date End Date Marcel Lundy MD [address] [place] [phone] PCP - General Internal Medicine 10/20/24 Self-Referred, Patient Referring Physician 10/26/24 Jenise Wilson MD [address] [place] [phone] [email or web address] Oncology 12/01/24 documented as of this encounter Additional Source Comments The information contained in this document represents components of the legal health record. It is not the complete legal health record.[facility]
== END 2024-12-02 10:33 | disposition home or self-care (01) ==
LOC: HO.HUSH 09:51
PROVIDERS: PCP Internal Medicine; Visit Provider Urology
DX: C61 Malignant neoplasm of prostate (principal); Z19.1 Hormone sensitive malignancy status
CPT/HCPCS: 99214; G2211

== ENCOUNTER 2024-12-20 15:34 | Outpatient (AMB) | payer MEDICARE, SELFPAY ==
--- OUTSIDE RECORDS SUMMARY | 2024-05-23 01:00 | XMS_ITS | Encounter Summary ---
Author Organization [facility] Address [facility] [address] [place], [place] [id number] Phone Care Team Providers Care Ct Scan Technologist Name Role Phone Unavailable Primary Care Provider Unavailabl e Encounter Details Date Type Department Care Team (Late st Contact Info) Description 05/23/2024 Hospital Encounter [facility],Outside Imaging [address] [place] [address] Unknown, Unknown, MD Arrived Social History Tobacco Use Types Packs/Day Years Used Date Smoking Tobacco: Former Cigarettes Q uit: 11/18/1974 Education Answer Date Recorded Are you interested in more education? Not on myles e 10/26/2024 Are you concerned about learning? Not on file 10/26/2024 No 10/26/2024 No 10/26/2024 Digital Access Answer Date Recorded No 10/26/2024 No 10/26/2024 Reliable internet access at home? Not on file 10/26/2024 Device with a working camera? Not on file Sex and Gender Information Value Date Recorded Sex Assigned at Male 10/20/2024 12:41 PM EDT Legal Sex Male 12:33 PM EDT Gender Identity Male 10/20/2024 12:41 PM EDT Sexual Orientation Straight 10/20/2024 12 :41 PM EDT documented as of this encounter Plan of Treatment Upcoming Encounters Date Type Department Care Team (Late st Contact Info) Description 01/12/2025 11:00 AM EDT Office Visit [facility] Rad Onc [address] [place] [address] Semaj Dasilva MD [address] [place] [address] [email or web address] documented as of this encounter Procedures Procedure Name Priority Date/Time Associated Diagnosis Comments MRI PELVIS (SOFT TISSUE) OUTSIDE (NO INTERPRETATION) Routine 05/23/2024 12:00 AM EST documented in this encounter Results * MRI Pelvis (Soft Tissue) Outside (No Interpretation) (05/23/2024 12:00 AM EST) Narrative SYSTEMGENERATED, DOCUMENTATION - 12/20/2024 12:49 PM EDT This study is for PACS storage only and not for interpretation. us Unknown Unknown MD PATEL OUTSIDE IMAGING W/OUT INT ERPRETATION Final Result documented in this encounter Visit Diagnoses Not on filedocumented in this encounter Additional Source Comments The information contained in this document represents components of the legal health record. It is not the complete legal health record.[facility]
--- NOTE | 2024-12-20 15:34 | MHC.OFFVIS ---
Intake Visit Reasons: discuss questions and concern about GNHR Tx Intake Note: PT PRESENTS FOR: TELEHEALTH TO DISCUSS GNHR QUESTIONS UROLOGY MEDICATIONS: FINASTERIDE BLOOD THINNERS: NONE Aircraft Pneudraulics Repairer Required: No Accompanied by: Self / Same As Patient Allergies No Known Allergies Allergy (Verified 12/20/24 15:36) HPI Comments Details: Mr Romeo is a very pleasant male. He is a patient of Dr Lundy. He is seen today for the following urologic conditions. - gross hematuria - negative evaluation 2017 - lower urinary tract symptoms - prostate cancer Telemedicine Evaluation 15 min Consultation itsDapper Emre Video Eleazar had questions regarding GNRH These were addressed today In particular timing between GnRH, marker placement, and initiation of radiation Meeting next week with Dr. Dasilva Case had been discussed through his daughter with [facility] prostate tumor board They had made a very conservative recommendation with 18 months GnRH and external beam radiation They were not aware of the genetics that had been performed which showed low overall cell cycle score leaning towards single modal therapy Due to Eleazar is concerns we can organize external beam radiation Would recommend only a single GnRH injection with [facility] Since his daughter works at [facility] he would prefer therapy to be received at [facility] which has an affiliation Plan GnRH and placed referral Prostate cancer 07/2024, grade group 3 and grade group 4 low volume Staging - PET-CT highlights prostate right side. Question small right obturator node - Genetics Prolaris shows low moderate cell cycle score with recommendation for single modal therapy Wadsworth score: 8 (3+5) (B2.5) 10%, 7 (4+3) (b2.0) 80%, 7 (3+4) (C2.0) 30%, (c2.0 is too small to grade) % of pattern 4: 52% % of pattern 5: 1%, Grade group: 4, 3, and 2 Tumor quantitation: Number cores positive: 4 Total number of cores: 21 % of tissue involved: 8% Periprostatic fat inv.: Not identified. Seminal vesicle inv.: Not identified. Perineural inv.: Not identified. Lymphatic and/or vascular invasion: Not identified. Prostate MRI 12 mm x 5 mm lesion seen right posterolateral peripheral zone PI-RADS 4. Prostate size 30 cc. (Series 7, images 18 and 19) Recommend targeted biopsy due to size greater than 10 mm Consistent with location of right based nodule PSA 04/11 3.8, 10/11 3.3, 05/14 4.1 Significantly improved voiding following procedure with PVR 0 cc Lower Urinary Tract Symptoms: Has some mild weakness of stream Current visit is for further evaluation of, lower urinary tract symptoms. Current treatment includes 5-AR - many years. Prostate Symptom Score 06/06 Moderate (9-19), Bother 2 07/05 , Mild (0-8), Bother 2 Symptoms include / , incomplete emptying, weak stream, and are stable. Results from testing include Cystoscopy Enlarged median lobe 05/06 cytology negative PSA 2016 0.7, 07/09 2.4, 07/10 3.2, 10/10 4.6, 04/11 3.8 GreenLight laser prostatectomy 08/09 [facility] Medical History (Updated 08/19/24 @ 08:54 by Napoloen Dao MD) Osteoarthritis H/O abdominal ultrasound HLD (hyperlipidemia) Hypothyroid Benign prostatic hyperplasia with lower urinary tract symptoms Hematuria Surgical History (Updated 12/01/24 @ 09:38 by Kathy Quintana RN) Hx of prostate biopsy H/O colonoscopy History of prostate surgery History of hernia repair Social History Are you a primary direct care counselor to a significant other at home: No Do you presently have visiting nurse or other home services: No Patient Tobacco Use Status: Former Tobacco user Tobacco use type: Cigarette Years Smoked: 4 Review of Systems Const All systems reviewed & are unremarkable except as noted in HPI and below Reports no additional complaints Resp Reports no additional complaints GI Reports no additional complaints Reports as per HPI Musc Reports no additional complaints Physical Exam Telemedicine evaluation Appropriate responses Regular breathing rate and rhythm HEENT Head: Yes normal to inspection Ears: hearing grossly normal bilaterally Eyes General: appearance normal, both eyes and all related structures Neck Neck: Yes normal visual inspection Chest Chest palpation & inspection: normal inspection of the chest Resp Effort & Inspection: normal respiratory effort and able to speak in complete sentences Telehealth Telehealth Telehealth Platform: [facility] Location of provider rendering services: practice address Location of patient: address on file Patient Identification confirmed using: Name, : Yes Telehealth method: video Patient verbally consented to treatment: Yes Patient verbally consented to billing insurance company: Yes Patient informed of any privacy concerns related to visit: Yes Minutes spent on Phone/Video with Pt.: 15 Assessment & Plan Assessment & Plan (1) Hormone sensitive prostate cancer: Code(s): C61 - Malignant neoplasm of prostate; Z19.1 - Hormone sensitive malignancy status Category: Medical Plan Planned appointment with radiation oncology Patient Instructions: This note is constructed using voice recognition software. While every effort has been made to ensure accuracy wire harness design engineer errors may have been included. Imaging studies, laboratory and physical exam results were discussed and reviewed in detail. No major barriers to patient understanding were identified. An opportunity to ask questions regarding the treatment plan was provided. All questions were answered. The patient expressed understanding and agreement with the above treatment plan. The patient is aware they should contact our office by phone for worsening of their current condition or the appearance of new urologic symptoms. Compliance is encouraged with any medications and followup testing that is ordered. It is a privilege to participate in the urologic care of your patient. If you have any questions or concerns regarding treatment for the above conditions, or other urologic issues, please do not hesitate to contact me. The office telephone contact is [phone]. Sincerely, Dr Napoleon Dao MD, JAJA [facility] - Urology Compassionate Specialist Care for the Genitourinary System Coding Level of Care Code Tele Est Pt Level 3 (26100) Diagnoses Hormone sensitive prostate cancer C61; Z19.1
--- OUTSIDE RECORDS SUMMARY | 2024-12-20 16:33 | XMS_ITS | Clinical Summary ---
Author Organization [facility] Address [address] [place] [address] [place] [phone] Phone Care Team Providers Care Transit Police Officer Name Role Phone Marcel Lundy MD Primary Care Provider Self-Referred, Patient Unavailable Unavailab le Jenise Wilson MD Unavailable Encounters Date Type Department Care Team Description 12/20/2024 Ancillary Orders [facility],Outside Imaging [address] [place] [address] Unknown, Unknown, 12/15/2024 Transcribe Orders Alysha Lorenzo Imaging Department, [facility] [place], Radiography [address] [facility], Floor [address]1 [place] [address] Jenise Wilson MD 12/01/2024 Orders Only [facility] for Genitourinary Oncology, [facility] [place] [address] [facility], 11th [place] [address] Jenise Wilson MD Prostate cancer (Primary Dx) 11/30/2024 1:32 PM EDT - 11/30/2024 11:59 PM EDT [facility] An[facility] Pathology [address] [place] [address] Discharge Disposition: Home or Self Care 11/18/2024 3:00 PM EDT Office Visit [facility] Urology [address]S [address] [place] [address] Napoleon Dodson MD Malignant neoplasm of prostate (Primary Dx) 11/18/2024 Ancillary Orders [facility]'s Radiology [address] [place] [address] Napoleon Dodson MD 11/18/2024 Ancillary Orders [facility] Radiology [address] [place] [address] Napoleon Dodson MD from Last 3 Months [...] Mass Index - - Plan of Treatment Upcoming Encounters Date Type Department Care Team (Late st Contact Info) Description 01/12/2025 11:00 AM EDT Office Visit [facility] Rad Onc [address] [place] [address] Semaj Dasilva MD [address] [place] [address] [email or web address] Health Maintenance Due Date Last Done Comments Adult Td,Tdap Booster 1944 LIPID PANEL 1944 DEPRESSION SCREENING 1956 SMOKING Hx and SMOKELESS TOBACCO SCREENING 01/29/1957 INFLUENZA VACCINE (#1) 2024 , 02/02/2023, 02/03/2022, Additional history exists COVID-19 VACCINE ( season) 2024 12/24/2023, 02/18/2023, [...] file Insurance [place] [id number] [facility] MEDEX SUPPLEMENT MEDICARE PART A & B [place] MED[place] SUPPLEMENT MEDICARE PART A & B [place] MED[place] SUPPLEMENT MEDICARE PART A & B [facility] MEDEX SUPPLEMENT MEDICARE PART A & B [place] MEDEX SUPPLEMENT MEDICARE PART A & B [place] MEDEX SUPPLEMENT Care Teams Transit Police Officer Relationship Specialty Start Date End Date Marcel Lundy MD [address] [place] [address] PCP - General Internal Medicine 10/20/24 Self-Referred, Patient Referring Physician 10/26/24 Jenise Wilson MD [address] [place] [address] [email or web address] Radiation Oncology 12/01/24 Additional Source Comments The information contained in this document represents components of the legal health record. It is not the complete legal health record.[facility]
--- OUTSIDE RECORDS SUMMARY | 2024-12-20 16:33 | XMS_ITS | Clinical Summary ---
Author Organization [facility] Address [address] [place] [address] Phone Care Team Providers Care Vice President Investor Relations Name Role Phone Unavailable Primary Care Provider [...]
--- OUTSIDE RECORDS SUMMARY | 2024-12-20 16:33 | XMS_ITS | Encounter Summary ---
Author Organization [facility] Address [address] [place] [address] [address] [place] [address] Phone Care Team Providers Care Tissue Technologist Name Role Phone Marcel Lundy MD Primary Care Provider [phone] Self-Referred, Patient Unavailable Unavailab Jenise Guevara MD Unavailable Encounter Details Date Type Department Care Team (Late st Contact Info) Description 12/20/2024 Ancillary Orders [facility],Outside Imaging [address] [place], [place] [id number] Unknown, Unknown, Social History Tobacco Use Types Packs/Day Years [...] Description 01/12/2025 11:00 AM EDT Office Visit [facility] Onc [address] [place] [address] Semaj Dasilva MD [address] [place] [address] [email or web address] documented as of this encounter Results * MRI Pelvis (Soft Tissue) Outside (No Interpretation) (05/23/2024 12:00 AM EST) Narrative SYSTEMGENERATED, DOCUMENTATION - 12/20/2024 12:49 PM EDT This study is for PACS storage only and not for interpretation. us Unknown Unknown MD PATEL OUTSIDE IMAGING W/OUT INT ERPRETATION Final Result documented in this encounter Visit Diagnoses Not on filedocumented in this encounter Care Teams Tissue Technologist Relationship Specialty Start Date End Date Marcel Lundy MD [address] [place] [phone] PCP - General Internal Medicine 10/20/24 Self-Referred, Patient Referring Physician 10/26/24 Jenise Wilson MD [address] [place] [address] [email or web address] Radiation Oncology 12/01/24 documented as of this encounter Additional Source Comments The information contained in this document represents components of the legal health record. It is not the complete legal health record.[facility]
--- OUTSIDE RECORDS SUMMARY | 2024-12-20 16:33 | XMS_ITS | Encounter Summary ---
Author Organization [facility] Address [facility] [address] [place], [place] [phone] Phone Care Team Providers Care Baseball Sewer Hand Name Role Phone Marcel Lundy MD Primary Care Provider [phone] Self-Referred, Patient Unavailable Unavailab le Jenise Wilson MD Unavailable Encounter Details Date Type Department Care Team (Late st Contact Info) Description 12/15/2024 Transcribe Orders Alysha Lank Imaging Department, [facility], Radiography [address] [employer] [employer] [address], [address] [place] [address] Jenise Wilson MD [address] [place] [address] [email or web address] Social History Tobacco Use Types Packs/Day Years [...] Description 01/12/2025 11:00 AM EDT Office Visit [facility] At [facility] Rad Onc [address] [place] [address] Semaj Dasilva MD [address] [place] [address] [email or web address] documented as of this encounter Results * MRI Pelvis (Bone) Outside (No Interpretation) (05/23/2024 12:00 AM EST) Other Narrative PERCIPIO_DFCI - 12/15/2024 9:09 AM EDT This study is for PACS storage only and not for interpretation. us Jenise Wilson MD IMG OUTSIDE IMAGING W/OUT INTERP RETATION Final Result [facility] documented in this encounter Visit Diagnoses Not on filedocumented in this encounter Care Teams Baseball Sewer Hand Relationship Specialty Start Date End Date Marcel Lundy MD [address] [place] [address] PCP - General Internal Medicine 10/20/24 Self-Referred, Patient Referring Physician 10/26/24 Jenise Wilson MD [address] [place] [address] [email or web address] Radiation Oncology 12/01/24 documented as of this encounter Additional Source Comments The information contained in this document represents components of the legal health record. It is not the complete legal health record.[facility]
== END 2024-12-20 16:30 | disposition home or self-care (01) ==
LOC: HO.HUSH 15:34
PROVIDERS: PCP Internal Medicine; Visit Provider Urology
DX: C61 Malignant neoplasm of prostate (principal); Z19.1 Hormone sensitive malignancy status
CPT/HCPCS: 99213

== ENCOUNTER 2024-12-30 10:46 | Outpatient (AMB) | payer MEDICARE, SELFPAY ==
--- NOTE | 2024-12-30 10:52 | AM.OFFVISNUR ---
Intake Visit Reasons: GnRH Allergies No Known Allergies Allergy (Verified 12/20/24 15:36) Office Meds Eligard (6 month) 45 mg (6 month) subcutaneous syringe Performing Provider: Napoleon Dao MD Performing [facility] Administered by: Aj Miles LPN on 12/30/24 10:52 Dose Route Admin Location Dispensed Lot Number Expiration Date [facility] Tray Casting Machine Operator 45 mg subcut left arm 45 mg [id number] 02/18/26 24669-613-95 [employer]. Total Dispensed Waste 45 mg 0 % Assessment & Plan Assessment & Plan Orders: Orders AMB Leuprolide Injection - Practice Supplied Today C61 - Malignant neoplasm of prostate, Z19.1 - Hormone sensitive malignancy status Coding
--- OUTSIDE RECORDS SUMMARY | 2024-12-30 12:21 | XMS_ITS | Clinical Summary ---
Author Organization [facility] Address [address] [place] [address] Phone Care Team Providers Care Fire Protection Fabricator Name Role Phone Unavailable Primary Care Provider [...]
--- OUTSIDE RECORDS SUMMARY | 2024-12-30 12:21 | XMS_ITS | Clinical Summary ---
Author Organization [facility] Address [address] [place] [address] [place] [address] Phone Care Team Providers Care Highway Painter Helper Name Role Phone Marcel Lundy MD Primary Care Provider Self-Referred, Patient Unavailable Unavailab le Jenise Wilson MD Unavailable Encounters Date Type Department Care Team Description 12/20/2024 Ancillary Orders [facility],Outside Imaging [address] [place] [address] Unknown, Unknown, 12/15/2024 Transcribe Orders Alysha Lorenzo Imaging Department, [facility] [place], Radiography [address] [facility], [address] [place] [address] Jenise Wilson MD 12/01/2024 Orders Only [facility] for Genitourinary Oncology, [facility] [place] [address] [facility], 11th [place] [address] Jenise Wilson MD Prostate cancer (Primary Dx) 11/30/2024 1:32 PM EDT - 11/30/2024 11:59 PM EDT Hospital Encounter [facility] Anatomic Pathology [address] [place] [address] Discharge Disposition: Home or Self Care 11/18/2024 3:00 PM EDT Office Visit [facility] Urology [address]S [address] [place] [address] Napoleon Dodson MD Malignant neoplasm of prostate (Primary Dx) 11/18/2024 Ancillary Orders [facility]'s Radiology [address] [place] [address] Napoleon Dodson MD 11/18/2024 Ancillary Orders [facility] Radiology [address] [place] [address] Napoleon Dodson MD from Last 3 Months [...] Description 01/12/2025 11:00 AM EDT Office Visit [facility] Rad Onc [address] [place] [address] Semaj Dasilva MD [address] [place] [address] [email or web address] Health Maintenance Due Date Last Done Comments [...] Insurance [place] A [place] [id number] [facility] MEDEX SUPPLEMENT MEDICARE PART A & B [employer] MED[employer] SUPPLEMENT MEDICARE PART A & B [employer] MED[employer] SUPPLEMENT MEDICARE PART A & B [facility] MEDEX SUPPLEMENT MEDICARE PART A & B [employer] SUPPLEMENT MEDICARE PART A & B [employer] MED[employer] SUPPLEMENT Care Teams Highway Painter Helper Relationship Specialty Start Date End Date Marcel Lundy MD [address] [place] [address] PCP - General Internal Medicine 10/20/24 Self-Referred, Patient Referring Physician 10/26/24 Jenise Wilson MD [address] [place] [address] [email or web address] Radiation Oncology 12/01/24 Additional Source Comments The information contained in this document represents components of the legal health record. It is not the complete legal health record.[facility]
== END 2024-12-30 11:01 | disposition home or self-care (01) ==
LOC: HO.HUSH 10:47
PROVIDERS: PCP Internal Medicine; Visit Provider Urology
DX: C61 Malignant neoplasm of prostate (principal); Z19.1 Hormone sensitive malignancy status

== ENCOUNTER → 2024-12-30 10:46 | Outpatient (BNVA) | payer MEDICARE, SELFPAY | PROVIDERS: PCP Internal Medicine; Visit Provider Urology | DX: Z51.11 Encounter for antineoplastic chemotherapy (principal); C61 Malignant neoplasm of prostate; Z19.1 Hormone sensitive malignancy status | CPT/HCPCS: 96402; J9217 ==

== ENCOUNTER 2025-01-23 07:50 | Day surgery (SDC) | payer MEDICARE, SELFPAY ==
--- OUTSIDE RECORDS SUMMARY | 2025-01-05 16:13 | XMS_ITS | Clinical Summary ---
Author Organization [facility] Address [address] [place] [address] [place] [address] Phone Care Team Providers Care Executive Meeting Manager Name Role Phone Marcel Lundy MD Primary Care Provider Self-Referred, Patient Unavailable Unavailab le Jenise Wilson MD Unavailable Encounters Date Type Department Care Team Description 12/20/2024 Ancillary Orders [facility],Outside Imaging [address] [place] [address] Unknown, Unknown, 12/15/2024 Transcribe Orders Alysha Lorenzo Imaging Department, [facility] [place], Radiography [address] [facility], [address] [place] [address] Jenise Wilson MD 12/01/2024 Orders Only [facility] for Genitourinary Oncology, [facility] [place] [address] [facility], 11th [place] [address] Jenise Wilson MD Prostate cancer (Primary Dx) 11/30/2024 1:32 PM EDT - 11/30/2024 11:59 PM EDT Hospital Encounter [facility] Anatomic Pathology [address] [place] [address] Discharge Disposition: Home or Self Care 11/18/2024 3:00 PM EDT Office Visit [facility] Urology [address]S [address] [place] [address] Napoleon Dodson MD Malignant neoplasm of prostate (Primary Dx) 11/18/2024 Ancillary Orders [facility]'s Radiology [address] [place] [address] Napoleon Dodson MD 11/18/2024 Ancillary Orders [facility] Radiology [address] [place] [address] Napoleon Dodson MD from Last 3 Months [...] Description 01/12/2025 11:00 AM EDT Office Visit [facility] At [facility] Rad Onc [address] [place] [address] Semaj Dasilva MD [address] [place] [address] [email or web address] Health Maintenance Due Date Last Done [...] Insurance MED[place] PART A [place] [id number] [facility] MEDEX SUPPLEMENT MEDICARE PART A & B [employer] MEDEX SUPPLEMENT MEDICARE PART A & B [employer] MEDEX SUPPLEMENT MEDICARE PART A & B [facility] MEDEX SUPPLEMENT MEDICARE PART A & B [employer] MEDEX SUPPLEMENT MEDICARE PART A & B [employer] MEDEX SUPPLEMENT Care Teams Executive Meeting Manager Relationship Specialty Start Date End Date Marcel Lundy MD [address] [place] [address] PCP - General Internal Medicine 10/20/24 Self-Referred, Patient Referring Physician 10/26/24 Jenise Wilson MD [address] [place] [address] [email or web address] Radiation Oncology 12/01/24 Additional Source Comments The information contained in this document represents components of the legal health record. It is not the complete legal health record.[facility]
--- OUTSIDE RECORDS SUMMARY | 2025-01-05 16:14 | XMS_ITS | Clinical Summary ---
Author Organization [facility] Address [address] [place] [address] Phone Care Team Providers Care Mixed Crop And Livestock Farmer Name Role Phone Unavailable Primary Care Provider [...]
--- NOTE | 2025-01-19 14:47 | HO.ANESPROP2 ---
Documented by User: Lisa Garcia NP 01/19/25 14:47 HPI - Anesthesia Eval Consult details Narrative: 79yo M For Space OAR [facility] Active Problems Active Problems: All Active Problems Hormone sensitive prostate cancer (Acute) Rising PSA level (Acute) Nocturia associated with benign prostatic hyperplasia (Acute) Benign prostatic hyperplasia with lower urinary tract symptoms (Acute) Past Medical History Medical History Osteoarthritis H/O abdominal ultrasound HLD (hyperlipidemia) Hypothyroid Benign prostatic hyperplasia with lower urinary tract symptoms Hematuria Family History Family history of problems with anesthesia: No Surgical History Surgical History Hx of prostate biopsy H/O colonoscopy History of prostate surgery History of hernia repair History of Problems with Anesthesia: No Social History Social History Are you a primary furnace caretaker to a significant other at home: No Do you presently have visiting nurse or other home services: No Patient Tobacco Use Status: Former Tobacco user Tobacco use type: Cigarette Years Smoked: 4 Have you been hit, kicked, punched, or otherwise hurt by someone within the past year? If so, by whom?: No Are you DNR?: No Advance Directives: No Advance Directives Information Provided: Yes Poor oral hygiene: No Meds Allergies Allergy/AdvReac Type Severity Reaction Status Date / Time No Known Allergies Allergy Verified 01/23/25 08:06 Home Medications ?Medication ?Instructions ?Recorded ?Confirmed ?Last Taken ?Type atorvastatin 40 mg tablet 40 mg PO DAILY 07/05/20 01/23/25 Unknown History levothyroxine 75 mcg tablet 75 mcg PO DAILY 07/05/20 01/23/25 Unknown History Assessment and Plan Assessment Anesthesia Assessment: Chart Reviewed Final Anesthetic Review Family History of Problems with Anesthesia: No History of Problems with Anesthesia: No Documented by User: Kathy Tan MD 01/23/25 08:56 [facility] Past Medical History Medical History Osteoarthritis H/O abdominal ultrasound HLD (hyperlipidemia) Hypothyroid Benign prostatic hyperplasia with lower urinary tract symptoms Hematuria Surgical History Surgical History Hx of prostate biopsy H/O colonoscopy History of prostate surgery History of hernia repair Social History Social History Are you a primary furnace caretaker to a significant other at home: No Do you presently have visiting nurse or other home services: No Patient Tobacco Use Status: Former Tobacco user Tobacco use type: Cigarette Years Smoked: 4 Have you been hit, kicked, punched, or otherwise hurt by someone within the past year? If so, by whom?: No Are you DNR?: No Advance Directives: No Advance Directives Information Provided: Yes Poor oral hygiene: No Meds Allergies Allergy/AdvReac Type Severity Reaction Status Date / Time No Known Allergies Allergy Verified 01/23/25 08:06 Home Medications ?Medication ?Instructions ?Recorded ?Confirmed ?Last Taken ?Type atorvastatin 40 mg tablet 40 mg PO DAILY 07/05/20 01/23/25 Unknown History levothyroxine 75 mcg tablet 75 mcg PO DAILY 07/05/20 01/23/25 Unknown History Exam Airway Mallampati Class: II (caps laterally) TM Dist: >3cm Neck ROM: Full Heart: rrr Lungs: cta Assessment and Plan Assessment Anesthesia Assessment: Anesthesia Plan Discussed Final Anesthetic Review NPO: Yes ASA Class: II Final Preanesthetic Review: No Changes in Pt Med Stat, Meds/Allgs Chart Reviewed and Consent Obtained/Reviewed Patient Risk: Low Procedure Risk: Low Anesthetic Plan Anesthetic Plan: GA Disposition: Standard PACU
[2025-01-23 08:05] VITALS: BMI 21.7
[2025-01-23] MEDS: Lactated Ringers 1,000 ML 100 ML IVCONT (08:12)
[2025-01-23 08:24] VITALS: BP 152/69; PULSE 54; RESP 18; TEMP 36.7; O2SAT 97
--- NOTE | 2025-01-23 09:46 | MHC.SHP ---
Pre-Procedural Eval Section A - 24 Hr Update-Section A only Date of Service: 01/23/25 The patient is an INPATIENT: No Changes since office visit: No Cold of Flu in the past 2 weeks, No New Medical Problems, No Changes in Medication and No Patient answered all questions The patient has been examined within 24 hours of the surgical procedure. The History & Physical has been completed within 30 days and I have reviewed it.: Yes Section B - Complete if H&P > 30 days Chief Complaint: Malignant neoplasm of prostate Details of Present Illness: Space OAr with visicoil Allergies: Allergies Allergy/AdvReac Type Severity Reaction Status Date / Time No Known Allergies Allergy Verified 01/23/25 08:06 Plan I have reviewed the history and physical and performed a pertinent physical examination on my patient. No changes have occurred unless specified. Time Spent With Patient Time: Total time managing care of this patient today ____ minutes.
[2025-01-23 10:31] VITALS: BP 145/68; PULSE 63; RESP 16; TEMP 36.5; O2SAT 100
[2025-01-23 10:35] VITALS: BP 141/67; PULSE 66; RESP 16; O2SAT 98
[2025-01-23 10:40] VITALS: BP 145/59; PULSE 61; RESP 16; O2SAT 98
--- NOTE | 2025-01-23 10:43 | W.PM.OPN ---
Operative Note Operative Note Date of Service: 01/23/25 Narrative: Preoperative diagnosis: Prostate cancer Postoperative diagnosis: Prostate cancer Procedure: 1. Transrectal ultrasound-guided perineal visicoil marker seed placement 2. Transrectal ultrasound-guided perineal SpaceOAR gel placement Surgeon: Dr. Napoleon Dao Anesthetic: Sedation Indications for procedure: Prostate Cancer Procedure: After informed consent was verified, the patient was brought into the operating room and anesthesia was performed per protocol. The patient was placed in a modified dorsal lithotomy position. Anus was dilated with a finger. Gel was placed per rectum. Ultrasound probe was placed per rectum. The prostate was visualized in sagittal and transverse dimensions. Local anesthetic was infiltrated in the perineal area using 10 cc of lidocaine Visicoil seed markers were placed in a transperineal fashion using ultrasound guidance 1 on the right toward mid gland. 1 on the left at mid gland. Good deployment confirmed with ultrasound. The purpose is for target triangulation. The 2nd part of the procedure was placement of SpaceOAR gel to allow consolidation for radiation delivery. The kit was prepared on the backtable with assembly of the 2 part solution and syringe delivery system per kit instructions. The delivery needle was advanced bevel down in the midline under ultrasound guidance to the apex of the prostate. It was advanced in the plane the prostate from the rectum to the midpoint of the prostate. Location was reviewed using sagittal and transverse imaging. At the midpoint of the prostate 1 cc of saline was placed to confirm needle position. Further injection saline was placed to confirm spread toward the base of the prostate. Position was confirmed with sagittal and transverse imaging. The needle was confirmed to be free from tenting of the rectum. With the needle in the confirmed position 10 cc of gel mixture was injected. This was performed over a target time of 15-20 seconds to allow for adequate spread.. Good separation was seen of the rectum from the prostate space running in the midline from the base toward the apex of the prostate. Following completion of the procedure the probe was removed from the rectum. He tolerated the procedure well. He was extubated in the operating room and transferred in stable condition to the recovery area. Pathology none Drains none
[2025-01-23 10:45] VITALS: BP 150/73; PULSE 60; RESP 16; O2SAT 98
[2025-01-23 11:00] VITALS: BP 154/72; PULSE 63; RESP 16; TEMP 36.3; O2SAT 98
== END 2025-01-23 11:29 | disposition home or self-care (01) ==
PROVIDERS: PCP Internal Medicine; Visit Provider Urology
PROC: (CPT 55876; principal; 2025-01-23 09:50)
DX: C61 Malignant neoplasm of prostate (principal); Z19.1 Hormone sensitive malignancy status; N40.1 Benign prostatic hyperplasia with lower urinary tract symptoms; R39.12 Poor urinary stream; R31.9 Hematuria, unspecified; M19.90 Unspecified osteoarthritis, unspecified site; E78.5 Hyperlipidemia, unspecified; E03.9 Hypothyroidism, unspecified; Z79.899 Other long term (current) drug therapy; Z87.891 Personal history of nicotine dependence; Z98.890 Other specified postprocedural states
CPT/HCPCS: 55876; 55874; A4648; C1889; J1100; J2003; J2405; J2704; J3010

== ENCOUNTER → 2025-01-23 07:50 | Outpatient (BNV) | payer MEDICARE, SELFPAY | PROVIDERS: PCP Internal Medicine; Visit Provider Urology | DX: C61 Malignant neoplasm of prostate (principal) | CPT/HCPCS: 55874; 55876; 76872 ==